=== PATIENT | female | born 1990 | race Caucasian/White ===

== ENCOUNTER 2018-05-31 22:12 | Emergency (ER) | payer OTHER, MEDICAID ==
[2018-05-31 22:47] VITALS: TEMP 98.9
[2018-05-31] MEDS ORDERED: ONDANSETRON 4 MG/2 ML VIAL IVP STA (23:02)
[2018-05-31] MEDS ORDERED: KETOROLAC 30 MG/ML 1 ML VIAL IVP STA (23:02)
[2018-05-31] MEDS ORDERED: MORPHINE SULFATE 2 MG/ML SYRINGE IVP STA (23:02)
[2018-05-31] MEDS ORDERED: SODIUM CHLORIDE 0.9% 1,000 ML IV STA (23:02)
--- NOTE | 2018-05-31 23:22 | ED ---
Abdominal Pain HPI - General Chief Complaint: Abdominal Pain Stated Complaint: Abd pain Time Seen by Provider: 05/31/18 22:54 Source: patient Mode of arrival: ambulatory Limitations: no limitations - History of Present Illness Initial Comments: 27-year-old female patient presents emergency department today for evaluation of right leg pain that radiates into the right side of her abdomen. Patient states that the pain is sharp and cramp-like. Patient states that this started a couple of hours ago but has gotten worse. Patient denies any change to the pain with movement or deep breathing. Patient states that she did have a similar but less severe episode of pain last week that resolved on its own. Patient denies any hematuria, dysuria, urinary frequency, urinary urgency. Denies any abnormal vaginal bleeding or discharge. Denies any chance of . States that the pain has made her nauseated but she has not vomited. Denies any constipation or diarrhea. Has not had any fever or chills. No previous surgeries to her abdomen. Patient denies any recent rash, shortness breath, chest pain, diarrhea, constipation, numbness, tingling, dizziness, weakness, headache, visual changes, or any other complaints. - Related Data Home Medications Medication Instructions Recorded Confirmed Losartan/Hydrochlorothiazide 1 each PO DAILY 05/31/18 06/01/18 [Losartan-Hctz 100-25 mg Tab] Previous Rx's Medication Instructions Recorded Hydrocodone/Acetaminophen [[place] 1 tab PO Q6HR PRN #12 tab 06/01/18 5-325] Ibuprofen [Motrin] 600 mg PO Q8HR PRN #30 tab 06/01/18 Ondansetron [Zofran ODT] 4 mg PO Q8HR PRN #10 tab 06/01/18 Tamsulosin HCl [Flomax] 0.4 mg PO DAILY #7 cap 06/01/18 Allergies Allergy/AdvReac Type Severity Reaction Status Date / Time No Known Allergies Allergy Verified 05/31/18 22:47 Review of Systems ROS Statement: Those systems with pertinent positive or pertinent negative responses have been documented in the HPI. ROS Other: All systems not noted in ROS Statement are negative. Past Medical History Past Medical History: Hypertension Additional Past Medical History / Comment(s): PCOS History of Any Multi-Drug Resistant Organisms: None Reported Past Surgical History: No Surgical Hx Reported Past Psychological History: No Psychological Hx Reported Smoking Status: Never smoker Past Alcohol Use History: Rare Past Drug Use History: None Reported General Exam Limitations: no limitations General appearance: alert, in no apparent distress, other (This is a well- developed, well-nourished adult female patient in no acute distress. Vital signs upon presentation are temperature 98.9F, pulse 111, respirations 18, blood pressure 131/83, pulse ox 99% on room air.) Eye exam: Present: normal appearance, PERRL, EOMI. Absent: scleral icterus, conjunctival injection, periorbital swelling ENT exam: Present: normal exam, normal oropharynx, mucous membranes moist Respiratory exam: Present: normal lung sounds bilaterally. Absent: respiratory distress, wheezes, rales, rhonchi, stridor Cardiovascular Exam: Present: regular rate, normal rhythm, normal heart sounds. Absent: systolic murmur, diastolic murmur, rubs, gallop, clicks GI/Abdominal exam: Present: soft, tenderness (Mild right upper quadrant abdominal tenderness), normal bowel sounds. Absent: distended, guarding, rebound, rigid Back exam: Present: normal inspection, CVA tenderness (R). Absent: CVA tenderness (L) Neurological exam: Present: alert, oriented X3, CN II-XII intact Psychiatric exam: Present: normal affect, normal mood Skin exam: Present: warm, dry, intact, normal color. Absent: rash Course Vital Signs 05/31/18 22:44 Temperature 98.9 F Pulse Rate 111 H Respiratory 18 Rate Blood Pressure 131/83 Medical Decision Making - Medical Decision Making 27-year-old female patient was permit today for evaluation of right flank pain that radiated into her right mid abdomen. Physical examination did reveal some mild right flank tenderness. Labs reviewed and showed attained to rule out kidney stone and did show a 4 mm obstructing stone at the right UPJ. Patient did have some mild right-sided hydronephrosis. Patient was given Flomax here in the department. Upon reevaluation her pain is improved. We will discharge home with pain management, Flomax, and urology follow-up. Return parameters were discussed in detail. Patient verbalizes understanding and agrees with this plan. - Lab Data Result diagrams: 06/01/18 00:15 06/01/18 00:15 Lab Results 06/01/18 06/01/18 06/01/18 Range/Units 00:15 00:15 00:15 WBC 10.6 (3.8-10.6) k/uL RBC 5.07 (3.80-5.40) m/uL Hgb 13.2 (11.4-16.0) gm/dL Hct 39.6 (34.0-46.0) % MCV 78.0 L (80.0-100.0) fL MCH 26.0 (25.0-35.0) pg MCHC 33.4 (31.0-37.0) g/dL RDW 13.4 (11.5-15.5) % Plt Count 410 (150-450) k/uL Neutrophils % 65 % Lymphocytes % 27 % Monocytes % 3 % Eosinophils % 2 % Basophils % 1 % Neutrophils # 6.9 (1.3-7.7) k/uL Lymphocytes # 2.9 (1.0-4.8) k/uL Monocytes # 0.3 (0-1.0) k/uL Eosinophils # 0.3 (0-0.7) k/uL Basophils # 0.1 (0-0.2) k/uL Sodium 140 (137-145) mmol/L Potassium 4.7 (3.5-5.1) mmol/L Chloride 104 (98-107) mmol/L Carbon Dioxide 26 (22-30) mmol/L Anion Gap 10 mmol/L BUN 15 (7-17) mg/dL Creatinine 0.70 (0.52-1.04) mg/dL Est GFR (CKD-EPI)AfAm >90 (>60 ml/min/1.73 sqM) Est GFR (CKD-EPI)NonAf >90 (>60 ml/min/1.73 sqM) Glucose 105 H (74-99) mg/dL Calcium 9.5 (8.4-10.2) mg/dL Total Bilirubin 0.7 (0.2-1.3) mg/dL AST 50 H (14-36) U/L ALT 62 H (9-52) U/L Alkaline Phosphatase 92 (38-126) U/L Total Protein 8.2 (6.3-8.2) g/dL Albumin 4.6 (3.5-5.0) g/dL Amylase 50 (30-110) U/L Lipase 24 (23-300) U/L Urine Color Urine Appearance (Clear) Urine pH (5.0-8.0) Ur Specific [place] (1.001-1.035) Urine Protein (Negative) Urine Glucose (UA) (Negative) Urine Ketones (Negative) Urine Blood (Negative) Urine Nitrite (Negative) Urine Bilirubin (Negative) Urine Urobilinogen (<2.0) mg/dL Ur Leukocyte Esterase (Negative) Urine RBC (0-5) /hpf Urine WBC (0-5) /hpf Ur Squamous Epith Cells (0-4) /hpf Urine Mucus (None) /hpf Urine HCG, Qual Not Detected (Not Detectd) 06/01/18 Range/Units 00:15 WBC (3.8-10.6) k/uL RBC (3.80-5.40) m/uL Hgb (11.4-16.0) gm/dL Hct (34.0-46.0) % MCV (80.0-100.0) fL MCH (25.0-35.0) pg MCHC (31.0-37.0) g/dL RDW (11.5-15.5) % Plt Count (150-450) k/uL Neutrophils % % Lymphocytes % % Monocytes % % Eosinophils % % Basophils % % Neutrophils # (1.3-7.7) k/uL Lymphocytes # (1.0-4.8) k/uL Monocytes # (0-1.0) k/uL Eosinophils # (0-0.7) k/uL Basophils # (0-0.2) k/uL Sodium (137-145) mmol/L Potassium (3.5-5.1) mmol/L Chloride (98-107) mmol/L Carbon Dioxide (22-30) mmol/L Anion Gap mmol/L BUN (7-17) mg/dL Creatinine (0.52-1.04) mg/dL Est GFR (CKD-EPI)AfAm (>60 ml/min/1.73 sqM) Est GFR (CKD-EPI)NonAf (>60 ml/min/1.73 sqM) Glucose (74-99) mg/dL Calcium (8.4-10.2) mg/dL Total Bilirubin (0.2-1.3) mg/dL AST (14-36) U/L ALT (9-52) U/L Alkaline Phosphatase (38-126) U/L Total Protein (6.3-8.2) g/dL Albumin (3.5-5.0) g/dL Amylase (30-110) U/L Lipase (23-300) U/L Urine Color Yellow Urine Appearance Clear (Clear) Urine pH 6.0 (5.0-8.0) Ur Specific [place] 1.012 (1.001-1.035) Urine Protein Trace H (Negative) Urine Glucose (UA) Negative (Negative) Urine Ketones Negative (Negative) Urine Blood Large H (Negative) Urine Nitrite Negative (Negative) Urine Bilirubin Negative (Negative) Urine Urobilinogen <2.0 (<2.0) mg/dL Ur Leukocyte Esterase Negative (Negative) Urine RBC 10 H (0-5) /hpf Urine WBC 3 (0-5) /hpf Ur Squamous Epith Cells 4 (0-4) /hpf Urine Mucus Rare H (None) /hpf Urine HCG, Qual (Not Detectd) - Radiology Data Radiology results: report reviewed, image reviewed CT abdomen and pelvis without contrast was obtained. Report was reviewed in its entirety. Impression by Dr. Oakes shows multiple small bilateral renal calculi. Obstructing calculus at the right ureteropelvic junction. Disposition Clinical Impression: Kidney stone on right side Disposition: HOME SELF-CARE Condition: Good Instructions: Kidney Stones (ED), How to Strain Your Urine (ED) Additional Instructions: Increase fluids. Take medications as directed. Follow-up with urologist for further evaluation. Return here immediately for any new, worsening, or concerning symptoms. Prescriptions: Hydrocodone/Acetaminophen [[place] 5-325] 1 tab PO Q6HR PRN #12 tab PRN Reason: Pain Ibuprofen [Motrin] 600 mg PO Q8HR PRN #30 tab PRN Reason: Pain Ondansetron [Zofran ODT] 4 mg PO Q8HR PRN #10 tab PRN Reason: Nausea Tamsulosin HCl [Flomax] 0.4 mg PO DAILY #7 cap Is patient prescribed a controlled substance at d/c from ED?: No Referrals: Hubert Gan MD [Primary Care Provider] - 1-2 days Jadiel Garcia MD [STAFF PHYSICIAN] - 1-2 days Time of Disposition: 03:15
[2018-06-01 00:27] LABS: Basophils # (A) 0.1 k/uL (0-0.2); Basophils % (A) 1 %; Eosinophils # (A) 0.3 k/uL (0-0.7); Eosinophils % (A) 2 %; HCT 39.6 % (34.0-46.0); HGB 13.2 gm/dL (11.4-16.0); Lymphocytes # (A) 2.9 k/uL (1.0-4.8); Lymphocytes % (A) 27 %; MCHC 33.4 g/dL (31.0-37.0); Mean Platelet Volume 6.7; Monocytes # (A) 0.3 k/uL (0-1.0); Monocytes % (A) 3 %; Neutrophils # (A) 6.9 k/uL (1.3-7.7); Neutrophils % (A) 65 %; Platelet Count 410 k/uL (150-450); RBC 5.07 m/uL (3.80-5.40); RDW 13.4 % (11.5-15.5); WBC 10.6 k/uL (3.8-10.6)
[2018-06-01 00:29] LABS: Appearance,Urine Clear (Clear); Bilirubin,Urine Negative (Negative); Blood,Urine Large (Negative); Color,Urine Yellow; Glucose,Urine (UA) Negative (Negative); Ketones,Urine Negative (Negative); Leukocyte Esterase,Urine Negative (Negative); Mucus,Urine Rare /hpf; Nitrite,Urine Negative (Negative); Protein,Urine Trace (Negative); RBC,Urine 10 /hpf (0-5); Specific Gravity,Urine 1.012 (1.001-1.035); Squamous Epithelial Cell,Urine 4 /hpf (0-4); Urobilinogen,Urine <2.0 mg/dL (<2.0); WBC,Urine 3 /hpf (0-5)
[2018-06-01 00:38] LABS: Amylase 50 U/L (30-110); Anion Gap 10 mmol/L; Calcium 9.5 mg/dL (8.4-10.2); Carbon Dioxide 26 mmol/L (22-30); Chloride 104 mmol/L (98-107); Glucose 105 mg/dL (74-99); Lipase 24 U/L (23-300); Sodium 140 mmol/L (137-145); Total Bilirubin 0.7 mg/dL (0.2-1.3)
[2018-06-01 00:41] LABS: Albumin 4.6 g/dL (3.5-5.0); Blood Urea Nitrogen 15 mg/dL (7-17); Potassium 4.7 mmol/L (3.5-5.1); Total Protein 8.2 g/dL (6.3-8.2)
[2018-06-01 00:42] LABS: ALT 62 U/L (9-52); AST 50 U/L (14-36); Alkaline Phosphatase 92 U/L (38-126)
--- NOTE | 2018-06-01 03:12 | CT ---
EXAMINATION TYPE: CT abdomen pelvis wo con DATE OF EXAM: 06/01/2018 COMPARISON: None HISTORY: Right Flank Pain CT DLP: 1629.30 mGycm Automated exposure control for dose reduction was used. TECHNIQUE: Helical acquisition of images was performed from the lung bases through the pelvis. FINDINGS: Multiple axial sections are obtained from the diaphragm to the floor the pelvis with no contrast. Lung bases are clear. There is no pleural effusion. Heart size is normal. Liver spleen pancreas gallbladder appear normal. Bile ducts are not dilated. There is no adrenal mass . Kidneys show normal size and contour. There is mild right-sided hydronephrosis. There is a 4 mm eren culus at the right ureteropelvic junction. There is small right renal calculi in the lower pole left kidney. There is 1 mm calculus lateral right kidney. Ureters are not dilated. There is no ascites. Appendix appears normal. There is no intestinal wall th ickening. There are no dilated loops. Bladder distends smoothly. There is no ascites. There is no alexy e air. The bony structures appear intact. Uterus is anteverted. IMPRESSION: MULTIPLE SMALL BILATERAL RENAL CALCULI. OBSTRUCTING CALCULUS AT THE RIGHT URETEROPELVIC JUNCTION.
[2018-06-01] MEDS ORDERED: ONDANSETRON 4 MG ODT STARTER PACK 2 TAB BTL PO STA (03:14)
[2018-06-01] MEDS ORDERED: ACET/COD 300 MG/30 MG STARTER PACK 6 TAB BTL PO STA (03:14)
[2018-06-01] MEDS ORDERED: TAMSULOSIN 0.4 MG CAP.ER.24H PO STA (03:14)
[2018-06-01 03:40] VITALS: BP 167/95; PULSE 94; RESP 16
== END 2018-06-01 03:41 | disposition home or self-care (01) ==
LOC: EC 22:12
DX: N13.2 Hydronephrosis with renal and ureteral calculous obstruction (principal); I10 Essential (primary) hypertension; Z79.899 Other long term (current) drug therapy
CPT/HCPCS: 99284; 96374; 96375 ×2; 96361; 36415; 80053; 82150; 83690; 85025; 81001; 81025; 74176; J2405; J1885; J2270; S0119

== ENCOUNTER → 2018-12-24 | Outpatient (CLI) | payer MEDICAID ==
--- NOTE | 2018-12-24 16:35 | US ---
EXAMINATION TYPE: US pelvic complete DATE OF EXAM: 12/24/2018 COMPARISON: NONE CLINICAL HISTORY: R10.2 pelvic pain, hx of PCOS TECHNIQUE: Transabdominal (TA). Date of LMP: Unknown EXAM MEASUREMENTS: Uterus: 7.7 x 3.4 x 5.2 cm Endometrial Stripe: 0.9 cm Right Ovary: 2.3 x 1.5 x 2.5 cm Left Ovary: 2.8 x 1.5 x 1.5 cm 1. Uterus: Anteverted wnl 2. Endometrium: wnl 3. Right Ovary: wnl 4. Left Ovary: wnl 5. Bilateral Adnexa: wnl 6. Posterior cul-de-sac: wnl Urinary bladder is sonolucent. IMPRESSION: 1. Normal pelvic ultrasound
== END | disposition home or self-care (01) ==
LOC: RADUSWWP 07:20
PROVIDERS: ATTEND Obstetrics & Gynecology
DX: R10.2 Pelvic and perineal pain (principal)
CPT/HCPCS: 76856

== ENCOUNTER 2019-01-18 08:23 | Emergency (ER) | payer MEDICAID, OTHER ==
[2019-01-18] MEDS ORDERED: SODIUM CHLORIDE 0.9% 1,000 ML IV STA (08:52)
[2019-01-18] MEDS ORDERED: ONDANSETRON 4 MG/2 ML VIAL IVP STA (08:57)
[2019-01-18] MEDS ORDERED: KETOROLAC 30 MG/ML 1 ML VIAL IVP STA (08:57)
[2019-01-18 09:11] LABS: Basophils # (A) 0.1 k/uL (0-0.2); Basophils % (A) 1 %; Eosinophils # (A) 0.4 k/uL (0-0.7); Eosinophils % (A) 3 %; HCT 35.7 % (34.0-46.0); HGB 11.7 gm/dL (11.4-16.0); Lymphocytes # (A) 3.5 k/uL (1.0-4.8); Lymphocytes % (A) 31 %; MCH 26.3 pg (25.0-35.0); MCHC 32.7 g/dL (31.0-37.0); MCV 80.3 fL (80.0-100.0); Mean Platelet Volume 6.3; Monocytes # (A) 0.4 k/uL (0-1.0); Monocytes % (A) 4 %; Neutrophils # (A) 6.6 k/uL (1.3-7.7); Neutrophils % (A) 59 %; Platelet Count 390 k/uL (150-450); RBC 4.45 m/uL (3.80-5.40); RDW 14.3 % (11.5-15.5); WBC 11.1 k/uL (3.8-10.6)
[2019-01-18 09:15] LABS: Appearance,Urine Clear (Clear); Bilirubin,Urine Negative (Negative); Blood,Urine Small (Negative); Color,Urine Yellow; Glucose,Urine (UA) Negative (Negative); Ketones,Urine Negative (Negative); Leukocyte Esterase,Urine Negative (Negative); Mucus,Urine Occasional /hpf; Nitrite,Urine Negative (Negative); PH, Urine 6.5 (5.0-8.0); Protein,Urine Negative (Negative); RBC,Urine 8 /hpf (0-5); Specific Gravity,Urine 1.012 (1.001-1.035); Squamous Epithelial Cell,Urine <1 /hpf (0-4); Urobilinogen,Urine <2.0 mg/dL (<2.0); WBC,Urine 1 /hpf (0-5)
--- NOTE | 2019-01-18 09:22 | ED ---
General Adult HPI - General Chief complaint: Abdominal Pain Stated complaint: abdominal pain Time Seen by Provider: 01/18/19 08:38 Source: patient, RN notes reviewed Mode of arrival: ambulatory Limitations: no limitations - History of Present Illness Initial comments: 28-year-old female with a past medical history of hypertension, PCOS presents to the emergency department for a chief complaint of right flank pain. Patient states this has been ongoing for about 7 hours. Patient states that at about the same time she developed urinary urgency and frequency. Patient states that couple weeks ago she thought she had a urinary tract infection but she did not. She states she stopped amoxicillin about one week ago for an ear infection. Patient denies fevers or chills. She denies any abdominal pain. Patient does admit to a history of kidney stones. She does admit to nausea throughout the morning but denies any vomiting. Patient has no other complaints at this time including shortness of breath, chest pain, vomiting, headache, or visual khadijah nges. - Related Data Home Medications Medication Instructions Recorded Confirmed Losartan/Hydrochlorothiazide 1 tab PO HS 05/31/18 01/18/19 [Losartan-Hctz 100-25 mg Tab] Control (Unknown) 1 tab PO HS 01/18/19 01/18/19 Cholecalciferol (Vitamin D3) 2,000 unit PO HS 01/18/19 01/18/19 [Vitamin D3] Allergies Allergy/AdvReac Type Severity Reaction Status Date / Time No Known Allergies Allergy Verified 01/18/19 08:46 Review of Systems ROS Statement: Those systems with pertinent positive or pertinent negative responses have been documented in the HPI. ROS Other: All systems not noted in ROS Statement are negative. Past Medical History Past Medical History: Hypertension Additional Past Medical History / Comment(s): PCOS History of Any Multi-Drug Resistant Organisms: None Reported Past Surgical History: No Surgical Hx Reported Past Psychological History: No Psychological Hx Reported Smoking Status: Never smoker Past Alcohol Use History: Rare Past Drug Use History: None Reported General Exam Limitations: no limitations General appearance: alert, in no apparent distress Head exam: Present: atraumatic, normocephalic, normal inspection Eye exam: Present: normal appearance, PERRL, EOMI. Absent: scleral icterus, conjunctival injection, periorbital swelling ENT exam: Present: normal exam, mucous membranes moist Neck exam: Present: normal inspection, full ROM. Absent: tenderness, meningismus, lymphadenopathy Respiratory exam: Present: normal lung sounds bilaterally. Absent: respiratory distress, wheezes, rales, rhonchi, stridor Cardiovascular Exam: Present: regular rate, normal rhythm, normal heart sounds. Absent: systolic murmur, diastolic murmur, rubs, gallop, clicks GI/Abdominal exam: Present: soft, normal bowel sounds. Absent: distended, tenderness (No tenderness noted in the abdomen. There is some pressure when palpating the suprapubic area), guarding, rebound, rigid Back exam: Absent: CVA tenderness (R), CVA tenderness (L) Neurological exam: Present: alert, oriented X3, CN II-XII intact Psychiatric exam: Present: normal affect, normal mood Course Vital Signs 01/18/19 08:29 Temperature 98.4 F Pulse Rate 110 H Respiratory 16 Rate Blood Pressure 177/92 O2 Sat by Pulse 100 Oximetry Medical Decision Making - Medical Decision Making 28-year-old female presents for right flank pain with urinary urgency and frequency 5 hours. No abdominal tenderness whatsoever on exam. Negative Voss sign. Patient did have some mild pressure when palpating the suprapubic area. CBC and CMP are unremarkable. Ultrasound of the kidneys and bladder showed no evidence of hydronephrosis, nephrolithiasis or masses. Patient was given pain medicine and is feeling much better at this time. She is having significantly improved. At this time it is felt the patient can follow up outpatient. However I did discuss returning if she has worsening symptoms which she does agree with. - Lab Data Result diagrams: 01/18/19 08:54 01/18/19 08:54 Lab Results 01/18/19 01/18/19 01/18/19 Range/Units 08:54 08:54 08:54 WBC (3.8-10.6) k/uL RBC (3.80-5.40) m/uL Hgb (11.4-16.0) gm/dL Hct (34.0-46.0) % MCV (80.0-100.0) fL MCH (25.0-35.0) pg MCHC (31.0-37.0) g/dL RDW (11.5-15.5) % Plt Count (150-450) k/uL Neutrophils % % Lymphocytes % % Monocytes % % Eosinophils % % Basophils % % Neutrophils # (1.3-7.7) k/uL Lymphocytes # (1.0-4.8) k/uL Monocytes # (0-1.0) k/uL Eosinophils # (0-0.7) k/uL Basophils # (0-0.2) k/uL Sodium 137 (137-145) mmol/L Potassium 3.7 (3.5-5.1) mmol/L Chloride 103 (98-107) mmol/L Carbon Dioxide 23 (22-30) mmol/L Anion Gap 11 mmol/L BUN 15 (7-17) mg/dL Creatinine 0.69 (0.52-1.04) mg/dL Est GFR (CKD-EPI)AfAm >90 (>60 ml/min/1.73 sqM) Est GFR (CKD-EPI)NonAf >90 (>60 ml/min/1.73 sqM) Glucose 110 H (74-99) mg/dL Calcium 9.2 (8.4-10.2) mg/dL Total Bilirubin 0.9 (0.2-1.3) mg/dL AST 39 H (14-36) U/L ALT 43 (9-52) U/L Alkaline Phosphatase 82 (38-126) U/L Total Protein 8.2 (6.3-8.2) g/dL Albumin 4.5 (3.5-5.0) g/dL Amylase 83 (30-110) U/L Lipase 45 (23-300) U/L Urine Color Yellow Urine Appearance Clear (Clear) Urine pH 6.5 (5.0-8.0) Ur Specific [place] 1.012 (1.001-1.035) Urine Protein Negative (Negative) Urine Glucose (UA) Negative (Negative) Urine Ketones Negative (Negative) Urine Blood Small H (Negative) Urine Nitrite Negative (Negative) Urine Bilirubin Negative (Negative) Urine Urobilinogen <2.0 (<2.0) mg/dL Ur Leukocyte Esterase Negative (Negative) Urine RBC 8 H (0-5) /hpf Urine WBC 1 (0-5) /hpf Ur Squamous Epith Cells <1 (0-4) /hpf Urine Mucus Occasional H (None) /hpf Urine HCG, Qual Not Detected (Not Detectd) 01/18/19 Range/Units 08:54 WBC 11.1 H (3.8-10.6) k/uL RBC 4.45 (3.80-5.40) m/uL Hgb 11.7 (11.4-16.0) gm/dL Hct 35.7 (34.0-46.0) % MCV 80.3 (80.0-100.0) fL MCH 26.3 (25.0-35.0) pg MCHC 32.7 (31.0-37.0) g/dL RDW 14.3 (11.5-15.5) % Plt Count 390 (150-450) k/uL Neutrophils % 59 % Lymphocytes % 31 % Monocytes % 4 % Eosinophils % 3 % Basophils % 1 % Neutrophils # 6.6 (1.3-7.7) k/uL Lymphocytes # 3.5 (1.0-4.8) k/uL Monocytes # 0.4 (0-1.0) k/uL Eosinophils # 0.4 (0-0.7) k/uL Basophils # 0.1 (0-0.2) k/uL Sodium (137-145) mmol/L Potassium (3.5-5.1) mmol/L Chloride (98-107) mmol/L Carbon Dioxide (22-30) mmol/L Anion Gap mmol/L BUN (7-17) mg/dL Creatinine (0.52-1.04) mg/dL Est GFR (CKD-EPI)AfAm (>60 ml/min/1.73 sqM) Est GFR (CKD-EPI)NonAf (>60 ml/min/1.73 sqM) Glucose (74-99) mg/dL Calcium (8.4-10.2) mg/dL Total Bilirubin (0.2-1.3) mg/dL AST (14-36) U/L ALT (9-52) U/L Alkaline Phosphatase (38-126) U/L Total Protein (6.3-8.2) g/dL Albumin (3.5-5.0) g/dL Amylase (30-110) U/L Lipase (23-300) U/L Urine Color Urine Appearance (Clear) Urine pH (5.0-8.0) Ur Specific [place] (1.001-1.035) Urine Protein (Negative) Urine Glucose (UA) (Negative) Urine Ketones (Negative) Urine Blood (Negative) Urine Nitrite (Negative) Urine Bilirubin (Negative) Urine Urobilinogen (<2.0) mg/dL Ur Leukocyte Esterase (Negative) Urine RBC (0-5) /hpf Urine WBC (0-5) /hpf Ur Squamous Epith Cells (0-4) /hpf Urine Mucus (None) /hpf Urine HCG, Qual (Not Detectd) Disposition Clinical Impression: Renal colic Disposition: HOME SELF-CARE Condition: Good Instructions (If sedation given, give patient instructions): Renal Colic (ED) Additional Instructions: Please take Motrin and Tylenol for pain. Please follow-up with primary care in 1-2 days. Please return here to the emergency department if you have any worsening symptoms. Is patient prescribed a controlled substance at d/c from ED?: No Referrals: Hubert Gan MD [Primary Care Provider] - 1-2 days Time of Disposition: 10:44
[2019-01-18 09:30] LABS: ALT 43 U/L (9-52); AST 39 U/L (14-36); Albumin 4.5 g/dL (3.5-5.0); Alkaline Phosphatase 82 U/L (38-126); Amylase 83 U/L (30-110); Anion Gap 11 mmol/L; Blood Urea Nitrogen 15 mg/dL (7-17); Calcium 9.2 mg/dL (8.4-10.2); Carbon Dioxide 23 mmol/L (22-30); Chloride 103 mmol/L (98-107); Glucose 110 mg/dL (74-99); Lipase 45 U/L (23-300); Sodium 137 mmol/L (137-145); Total Bilirubin 0.9 mg/dL (0.2-1.3); Total Protein 8.2 g/dL (6.3-8.2)
[2019-01-18 09:34] LABS: Potassium 3.7 mmol/L (3.5-5.1)
--- NOTE | 2019-01-18 10:01 | US ---
EXAMINATION TYPE: US kidneys/renal and bladder DATE OF EXAM: 01/18/2019 COMPARISON: NONE CLINICAL HISTORY: Pain. Right flank pain, history of kidney stones EXAM MEASUREMENTS: Right Kidney: 12.7 x 5.3 x 5.8 cm Left Kidney: 12.0 x 5.9 x 5.1 cm Right Kidney: no evidence of hydronephrosis Left Kidney: no evidence of hydronephrosis Bladder: not fully distended Bilateral Jets seen: no There is no evidence for hydronephrosis at this point in time. No nephrolithiasis is seen. No diogenes s are identified. Cortical medullary differentiation is maintained. IMPRESSION: Renal sizes as described.
[2019-01-18 10:52] VITALS: BP 148/99; PULSE 100; RESP 17; TEMP 97.9
== END 2019-01-18 10:52 | disposition home or self-care (01) ==
LOC: EC 08:23
DX: N23 Unspecified renal colic (principal); I10 Essential (primary) hypertension; Z87.442 Personal history of urinary calculi; Z79.3 Long term (current) use of hormonal contraceptives; Z79.899 Other long term (current) drug therapy
CPT/HCPCS: 99284; 96374; 96375; 96361; 36415; 80053; 82150; 83690; 85025; 81001; 81025; 76770; J2405; J1885

== ENCOUNTER 2019-01-21 06:57 | Emergency (ER) | payer MEDICAID ==
[2019-01-21] MEDS ORDERED: SODIUM CHLORIDE 0.9% 1,000 ML IV STA (07:09)
[2019-01-21 07:20] VITALS: RESP 18; TEMP 98.1
[2019-01-21] MEDS ORDERED: KETOROLAC 30 MG/ML 1 ML VIAL IVP STA (07:29)
[2019-01-21] MEDS ORDERED: ONDANSETRON 4 MG/2 ML VIAL IVP STA ×2 (07:29→09:15)
--- NOTE | 2019-01-21 07:33 | ED ---
Abdominal Pain HPI - General Chief Complaint: Abdominal Pain Stated Complaint: Back/AbdPain Time Seen by Provider: 01/21/19 07:08 Source: patient, RN notes reviewed Mode of arrival: ambulatory Limitations: no limitations - History of Present Illness Initial Comments: This is a 28-year-old female presents emergency Department with chief complaint of lower abdominal pain, flank pain. Patient states that she was seen in emergency department for days ago for similar complaints states his symptoms are worsening. Patient denies any vomiting states that she's had some nausea. Patient noticed urinary urgency frequency with dysuria. Patient had no noted hematuria. She does have a history kidney stone but this feels worse. She also has a history of PE centimeters states is also feels different. Patient had an ultrasound on her last visit with no acute findings. Patient did take Tylenol 2 hours ago with no relief. Patient denies any diarrhea, constipation. Patient offers no other complaints. - Related Data Home Medications Medication Instructions Recorded Confirmed Cholecalciferol (Vitamin D3) 2,000 unit PO HS 01/21/19 01/21/19 [Vitamin D3] Losartan/Hydrochlorothiazide 1 tab PO HS 01/21/19 01/21/19 [Losartan-Hctz 100-25 mg Tab] Norgestimate/Ethinyl Estradiol 1 tab PO HS 01/21/19 01/21/19 Previous Rx's Medication Instructions Recorded Ketorolac [Toradol] 10 mg PO Q8HR #15 tab 01/21/19 Ondansetron Odt [Zofran Odt] 4 mg PO Q8HR PRN #10 tab 01/21/19 Tamsulosin [Flomax] 0.4 mg PO DAILY #7 cap 01/21/19 Allergies Allergy/AdvReac Type Severity Reaction Status Date / Time No Known Allergies Allergy Verified 01/21/19 09:11 Review of Systems ROS Statement: Those systems with pertinent positive or pertinent negative responses have been documented in the HPI. ROS Other: All systems not noted in ROS Statement are negative. Past Medical History Past Medical History: Hypertension Additional Past Medical History / Comment(s): PCOS History of Any Multi-Drug Resistant Organisms: None Reported Past Surgical History: No Surgical Hx Reported Past Psychological History: No Psychological Hx Reported Smoking Status: Never smoker Past Alcohol Use History: Rare Past Drug Use History: None Reported General Exam Limitations: no limitations General appearance: alert, in no apparent distress Head exam: Present: atraumatic, normocephalic, normal inspection Eye exam: Present: normal appearance, PERRL, EOMI. Absent: scleral icterus, conjunctival injection, periorbital swelling Neck exam: Present: normal inspection. Absent: tenderness, meningismus, lymphadenopathy Respiratory exam: Present: normal lung sounds bilaterally. Absent: respiratory distress, wheezes, rales, rhonchi, stridor Cardiovascular Exam: Present: regular rate, normal rhythm, normal heart sounds. Absent: systolic murmur, diastolic murmur, rubs, gallop, clicks GI/Abdominal exam: Present: soft, tenderness (Mild to moderate lower abdominal), normal bowel sounds. Absent: distended, guarding, rebound, rigid Back exam: Absent: CVA tenderness (R), CVA tenderness (L) Skin exam: Present: warm, dry, intact, normal color. Absent: rash Course Vital Signs 01/21/19 01/21/19 07:16 08:24 Temperature 98.1 F Pulse Rate 78 107 H Respiratory 18 18 Rate Blood Pressure 162/112 153/88 O2 Sat by Pulse 100 100 Oximetry Medical Decision Making - Medical Decision Making 28 show female presented for right flank pain, nausea vomiting. Patient has evidence of 3 mm UVJ stone. Patient will be given pain medication, antiemetics go home with. There is no evidence of urinary tract infection. Patient follow- up with urology if no improvement. - Lab Data Result diagrams: 01/21/19 07:30 01/21/19 07:30 Lab Results 01/21/19 01/21/19 01/21/19 Range/Units 07:30 07:30 07:30 WBC 11.2 H (3.8-10.6) k/uL RBC 4.29 (3.80-5.40) m/uL Hgb 11.0 L (11.4-16.0) gm/dL Hct 34.8 (34.0-46.0) % MCV 81.1 (80.0-100.0) fL MCH 25.7 (25.0-35.0) pg MCHC 31.7 (31.0-37.0) g/dL RDW 14.6 (11.5-15.5) % Plt Count 384 (150-450) k/uL Neutrophils % 61 % Lymphocytes % 29 % Monocytes % 5 % Eosinophils % 2 % Basophils % 1 % Neutrophils # 6.9 (1.3-7.7) k/uL Lymphocytes # 3.3 (1.0-4.8) k/uL Monocytes # 0.6 (0-1.0) k/uL Eosinophils # 0.2 (0-0.7) k/uL Basophils # 0.1 (0-0.2) k/uL Sodium 139 (137-145) mmol/L Potassium 4.2 (3.5-5.1) mmol/L Chloride 104 (98-107) mmol/L Carbon Dioxide 21 L (22-30) mmol/L Anion Gap 14 mmol/L BUN 18 H (7-17) mg/dL Creatinine 0.76 (0.52-1.04) mg/dL Est GFR (CKD-EPI)AfAm >90 (>60 ml/min/1.73 sqM) Est GFR (CKD-EPI)NonAf >90 (>60 ml/min/1.73 sqM) Glucose 109 H (74-99) mg/dL Calcium 9.6 (8.4-10.2) mg/dL Total Bilirubin 0.7 (0.2-1.3) mg/dL AST 22 (14-36) U/L ALT 36 (9-52) U/L Alkaline Phosphatase 87 (38-126) U/L Total Protein 7.7 (6.3-8.2) g/dL Albumin 4.4 (3.5-5.0) g/dL Lipase 45 (23-300) U/L Urine Color Urine Appearance (Clear) Urine pH (5.0-8.0) Ur Specific [place] (1.001-1.035) Urine Protein (Negative) Urine Glucose (UA) (Negative) Urine Ketones (Negative) Urine Blood (Negative) Urine Nitrite (Negative) Urine Bilirubin (Negative) Urine Urobilinogen (<2.0) mg/dL Ur Leukocyte Esterase (Negative) Urine HCG, Qual Not Detected (Not Detectd) 01/21/19 Range/Units 07:30 WBC (3.8-10.6) k/uL RBC (3.80-5.40) m/uL Hgb (11.4-16.0) gm/dL Hct (34.0-46.0) % MCV (80.0-100.0) fL MCH (25.0-35.0) pg MCHC (31.0-37.0) g/dL RDW (11.5-15.5) % Plt Count (150-450) k/uL Neutrophils % % Lymphocytes % % Monocytes % % Eosinophils % % Basophils % % Neutrophils # (1.3-7.7) k/uL Lymphocytes # (1.0-4.8) k/uL Monocytes # (0-1.0) k/uL Eosinophils # (0-0.7) k/uL Basophils # (0-0.2) k/uL Sodium (137-145) mmol/L Potassium (3.5-5.1) mmol/L Chloride (98-107) mmol/L Carbon Dioxide (22-30) mmol/L Anion Gap mmol/L BUN (7-17) mg/dL Creatinine (0.52-1.04) mg/dL Est GFR (CKD-EPI)AfAm (>60 ml/min/1.73 sqM) Est GFR (CKD-EPI)NonAf (>60 ml/min/1.73 sqM) Glucose (74-99) mg/dL Calcium (8.4-10.2) mg/dL Total Bilirubin (0.2-1.3) mg/dL AST (14-36) U/L ALT (9-52) U/L Alkaline Phosphatase (38-126) U/L Total Protein (6.3-8.2) g/dL Albumin (3.5-5.0) g/dL Lipase (23-300) U/L Urine Color Yellow Urine Appearance Clear (Clear) Urine pH 6.0 (5.0-8.0) Ur Specific [place] 1.025 (1.001-1.035) Urine Protein Trace H (Negative) Urine Glucose (UA) Negative (Negative) Urine Ketones Negative (Negative) Urine Blood Negative (Negative) Urine Nitrite Negative (Negative) Urine Bilirubin Negative (Negative) Urine Urobilinogen <2.0 (<2.0) mg/dL Ur Leukocyte Esterase Negative (Negative) Urine HCG, Qual (Not Detectd) Disposition Clinical Impression: Ureteral calculi Disposition: HOME SELF-CARE Condition: Stable Instructions (If sedation given, give patient instructions): Kidney Stones (ED) Additional Instructions: Please return to the Emergency Department if symptoms worsen or any other concerns. Prescriptions: Tamsulosin [Flomax] 0.4 mg PO DAILY #7 cap Ketorolac [Toradol] 10 mg PO Q8HR #15 tab Ondansetron Odt [Zofran Odt] 4 mg PO Q8HR PRN #10 tab PRN Reason: Nausea Is patient prescribed a controlled substance at d/c from ED?: No Referrals: Hubert Gan MD [Primary Care Provider] - 1-2 days Héctor Randolph MD [STAFF PHYSICIAN] - 1-2 days Time of Disposition: 09:28
[2019-01-21 07:57] LABS: Albumin 4.4 g/dL (3.5-5.0); Anion Gap 14 mmol/L; Blood Urea Nitrogen 18 mg/dL (7-17); Calcium 9.6 mg/dL (8.4-10.2); Carbon Dioxide 21 mmol/L (22-30); Chloride 104 mmol/L (98-107); Glucose 109 mg/dL (74-99); Lipase 45 U/L (23-300); Sodium 139 mmol/L (137-145); Total Bilirubin 0.7 mg/dL (0.2-1.3); Total Protein 7.7 g/dL (6.3-8.2)
[2019-01-21 08:04] LABS: ALT 36 U/L (9-52); AST 22 U/L (14-36); Potassium 4.2 mmol/L (3.5-5.1)
[2019-01-21 08:05] LABS: Alkaline Phosphatase 87 U/L (38-126)
[2019-01-21 08:19] LABS: Basophils # (A) 0.1 k/uL (0-0.2); Basophils % (A) 1 %; Eosinophils # (A) 0.2 k/uL (0-0.7); Eosinophils % (A) 2 %; HCT 34.8 % (34.0-46.0); Lymphocytes # (A) 3.3 k/uL (1.0-4.8); Lymphocytes % (A) 29 %; MCH 25.7 pg (25.0-35.0); MCHC 31.7 g/dL (31.0-37.0); MCV 81.1 fL (80.0-100.0); Monocytes # (A) 0.6 k/uL (0-1.0); Monocytes % (A) 5 %; Neutrophils # (A) 6.9 k/uL (1.3-7.7); Neutrophils % (A) 61 %; Platelet Count 384 k/uL (150-450); RBC 4.29 m/uL (3.80-5.40); RDW 14.6 % (11.5-15.5); WBC 11.2 k/uL (3.8-10.6)
[2019-01-21 08:26] VITALS: BP 153/88; PULSE 107
--- NOTE | 2019-01-21 08:46 | CT ---
EXAMINATION TYPE: CT abdomen pelvis w con DATE OF EXAM: 01/21/2019 COMPARISON: 06/01/2018 INDICATION: Rt flank pain, urinary frequency DLP: 1611.8 mGycm, Automated exposure control for dose reduction was used. CONTRAST: 100 mL of Isovue 300. Study performed without Oral Contrast TECHNIQUE: Axial images were obtained from above the diaphragm to the pubic rami in the axial plane a t 5 mm thick sections. Reconstructed images are reviewed on the computer in the coronal plane. FINDINGS: Limited CT sections are obtained the lung bases. The lung bases are clear. CT ABDOMEN: Liver: There is mild to moderate fatty infiltration to the liver. No discrete masses or cysts are charlee dent. Spleen: Normal Pancreas: Normal Adrenal glands: The adrenal glands are normal. Gallbladder: Normal Kidneys: No masses are evident. There is moderate right hydronephrosis. Hydroureter extends to the ri ght ureterovesical junction. There is a 0.3 cm calcification at the right ureteral vesicle junction. No cysts are present. There is a 0.3 cm inferior pole left renal stone which is nonobstructing. Aorta: Normal Inferior vena cava: Normal. CT PELVIS: Loops of bowel within the abdomen and pelvis are normal. Studies performed without oral contrast limiting bowel evaluation. Appendix: Not well visualized. What may be the appendix posterior to the cecum does not have inflamma tory changes adjacent. No dilated tubular structures are evident. Urinary bladder: Normal. Genitourinary structures: Uterus is unremarkable. Adnexal regions are clear. No free fluid is within the pelvis. Osseous structures: Unremarkable. IMPRESSIONS: 1. 0.3 cm obstructing right ureteral vesicle junction stone. There is moderate right hydronephrosis and hydroureter. 2. Nonobstructing inferior pole left renal stone.
[2019-01-21] MEDS ORDERED: TAMSULOSIN 0.4 MG CAP.ER.24H PO STA (08:48)
[2019-01-21 08:53] LABS: Appearance,Urine Clear (Clear); Bilirubin,Urine Negative (Negative); Blood,Urine Negative (Negative); Color,Urine Yellow; Glucose,Urine (UA) Negative (Negative); Ketones,Urine Negative (Negative); Leukocyte Esterase,Urine Negative (Negative); Nitrite,Urine Negative (Negative); Protein,Urine Trace (Negative); Urobilinogen,Urine <2.0 mg/dL (<2.0)
[2019-01-21 09:14] LABS: Specific Gravity,Urine 1.025 (1.001-1.035)
[2019-01-21] MEDS ORDERED: ACET/COD 300 MG/30 MG STARTER PACK 6 TAB BTL PO STA (09:26)
== END 2019-01-21 10:23 | disposition home or self-care (01) ==
LOC: EC 06:57
DX: N13.2 Hydronephrosis with renal and ureteral calculous obstruction (principal); I10 Essential (primary) hypertension; Z79.899 Other long term (current) drug therapy; Z79.890 Hormone replacement therapy; Z86.711 Personal history of pulmonary embolism
CPT/HCPCS: 36415; 80053; 83690; 85025; 81003; 81025; 74177; 99284; 96374; 96375; 96376; 96361 ×3; J2405; J1885; Q9967

== ENCOUNTER → 2019-12-06 | Outpatient (CLI) | payer MEDICAID ==
--- NOTE | 2019-12-06 11:19 | ECHOS ---
STRESS ECHOCARDIOGRAM DATE OF SERVICE: 12/06/2019 INDICATIONS: Chest pain. MEDICATIONS: BASELINE HEART RATE: 110 BASELINE BLOOD PRESSURE: 126/72 MAXIMUM HEART RATE: 180 MAXIMUM BLOOD PRESSURE: 191/55 85% MPHR: 164 100% MPHR: 193 METS: 5.4 MAXIMUM STAGE REACHED: II TOTAL EXERCISE TIME: 4 minutes CLINICAL INFORMATION: Baseline EKG revealed a normal sinus rhythm with sinus tachycardia. Resting heart rate of 110 beats per minute. Patient walked for 4 minutes on a standard Jorge protocol. Maximal heart rate was 180 beats per minute. She did not have any angina. She developed shortness of breath and fatigue. EKG did not reveal any ST-segment changes to indicate ischemia. She had a limited exercise capacity with the resting sinus tachycardia and no evidence of any ST-segment changes to indicate ischemia. Limited exercise capacity. Negative stress test by EKG criteria. Baseline echo images revealed normal wall motion and wall thickening of all segments. The patient was given echo contrast to improve the quality of images. At peak exercise there was good augmentation of wall motion and wall thickening of all segments suggesting that there is no evidence of any stress-induced ischemia on this study. IMPRESSION: 1. Limited exercise capacity with resting sinus tachycardia. No evidence of ischemia by EKG criteria. 2. Normal stress echocardiogram. MMODL / IJN: [id number] /
== END | disposition home or self-care (01) ==
LOC: RADNMMAIN 09:59
PROVIDERS: ATTEND Nurse Practitioner Family
DX: Z09 Encounter for follow-up examination after completed treatment for conditions other than malignant neoplasm (principal); R00.0 Tachycardia, unspecified; Z86.79 Personal history of other diseases of the circulatory system
CPT/HCPCS: 93351; Q9950

== ENCOUNTER → 2020-11-03 | Outpatient (CLI) | payer MEDICAID ==
--- NOTE | 2020-11-03 12:27 | US ---
EXAMINATION TYPE: US abdomen complete DATE OF EXAM: 11/03/2020 COMPARISON: CLINICAL HISTORY: R74.8 abnormal enzyme levels. Abnormal labs. Hx of renal stones. EXAM MEASUREMENTS: Liver Length: 18.1 cm Gallbladder Wall: 0.2 cm CBD: 0.3 cm Spleen: 12.4 cm Right Kidney: 11.2 x 5.0 x 6.0 cm Left Kidney: 11.4 x 5.0 x 6.2 cm Pancreas: wnl Liver: Increased attenuation, decreased visualization of vessels suggestive of fatty infiltrate. He terogenous. Upper limits of normal. Gallbladder: wnl Evidence for sonographic Voss's sign: neg CBD: wnl Spleen: wnl Right Kidney: No hydronephrosis or masses seen Left Kidney: No hydronephrosis or masses seen Upper IVC: Not well visualized Abd Aorta: Limited visualization, distal portion not seen due to overlying bowel gas IMPRESSION: 1. Pattern to the liver is nonspecific could be seen with fatty infiltration, diffuse hepatocellular disease or hepatitis.
== END | disposition home or self-care (01) ==
LOC: RADUSMAIN 07:21
PROVIDERS: ATTEND Family Medicine
DX: R74.8 Abnormal levels of other serum enzymes (principal)
CPT/HCPCS: 76700

== ENCOUNTER → 2021-05-26 | Outpatient (CLI) | payer MEDICAID ==
[2021-05-26 13:40] VITALS: BP 136/87; PULSE 97; RESP 16; TEMP 98.2; BMI 43.7
--- NOTE | 2021-05-26 14:15 | P.HPBAR ---
Bariatric H&P - History & Physicial H&P Date: 05/26/21 History & Physicial: Visit/CC: Initial Patient initial contact: Initial weight: 116.29 kg Initial weight in pounds: 256.38 Height: 5 ft 4.25 in Initial BMI: 43.7 Last weight: Current weight: 116.29 kg Current weight in pounds: 256.38 Current BMI: 43.7 [place] body weight (based on NIH guidelines): 54.998 kg Excess body weight loss: 0.0% The patient is a 30 year-old F who presents for Bariatric Assessment. She comes in for weight loss. She has tried weight watchers. She was on adipex but had tachycardia. Highest weight is at present. She lost 20 pounds and gained her weight. Her mother has troubles with weight. No food allergies. No pickey eating. No abdominal surgeries. No family history of esophageal or stomach cancer except pancreatic cancer in grandmother on mother's side. No dysphagia. No easy bruising or bleeding. No blood clots. She reports kidney stones. She has knee pain. She has hypertension for many years. She has severe reflux with spicey, tomatoes, chocolate. She denies ulcerative colitis. Her goal is just to get healthy. Non smoker. [facility] reviewed. Past Medical History Past Medical History: Hypertension Additional Past Medical History / Comment(s): PCOS History of Any Multi-Drug Resistant Organisms: None Reported Past Surgical History: No Surgical Hx Reported Past Anesthesia/Blood Transfusion Reactions: No Reported Reaction Additional Past Anesthesia/Blood Transfusion Reaction / Comm: 05/26/21 : Never had blood transfusion or surgery. Past Psychological History: No Psychological Hx Reported Smoking Status: Never smoker Past Alcohol Use History: Rare Past Drug Use History: None Reported Surgical - Exam Vital Signs Temp Pulse Resp BP 98.2 F 97 16 136/87 05/26/21 13:37 05/26/21 13:37 05/26/21 13:37 05/26/21 13:37 Bariatric Checklist Checklist: Plan: Checklist: EGD: 1. Hiatal hernia: 2. H. Pylori: HgbA1c: Vitamin D: Smoking: Never smoker Primary care physician referral: Elvia Perez Psychiatry clearance: Cardiology clearance: Sleep study: Diet journal: VTE risk score: VTE risk level: Rehab needs at discharge:
[2021-05-26 15:57] LABS: HCT 38.3 % (34.0-46.0); MCH 27.9 pg (25.0-35.0); MCHC 33.9 g/dL (31.0-37.0); MCV 82.2 fL (80.0-100.0); Mean Platelet Volume 6.8; Platelet Count 346 k/uL (150-450); RBC 4.66 m/uL (3.80-5.40); RDW 13.3 % (11.5-15.5); WBC 9.4 k/uL (3.8-10.6)
[2021-05-26 17:00] LABS: INR 0.9 (<1.2); Partial Thromboplastin Time 27.1 sec (22.0-30.0); Prothrombin Time 10.1 sec (9.0-12.0)
[2021-05-27 00:29] LABS: Hemoglobin A1C 6.7 % (4.0-6.0)
[2021-05-27 09:58] LABS: % Iron Saturation 13.13 (12.00-45.00); African American GFR (CKD) 116.3 (60.0-200.0); Albumin 4.5 g/dL (3.80-4.90); Albumin/Globulin Ratio 1.5 (1.60-3.17); Anion Gap 13.8 mmol/L (4.00-12.00); BUN/Creat Ratio 13.75 Ratio (12.00-20.00); Calcium 9.5 mg/dL (8.7-10.3); Carbon Dioxide 22.2 mmol/L (21.6-31.8); LDL Cholesterol,Calculated 117.4 mg/dL (0.0-131.0); Magnesium 1.6 mg/dL (1.5-2.4); Non-African American GFR(CKD) 100.3 (60.0-200.0); Phosphorus 3.9 mg/dL (2.4-5.1); Potassium 3.9 mmol/L (3.5-5.5); Total Bilirubin 0.7 mg/dL (0.2-1.2); Total Protein 7.5 g/dL (6.2-8.2); VLDL Calculation 30.6 mg/dL (5.00-40.00)
[2021-05-27 10:05] LABS: Ferritin 82.1 ng/mL (10.0-291.0)
[2021-05-27 13:17] LABS: Zinc, Serum 80 ug/dL (60-130)
[2021-05-28 06:23] LABS: Vitamin A 48 ug/dL (38-106)
[2021-05-28 11:35] LABS: Folate, Serum 5.9 ng/mL
== END | disposition home or self-care (01) ==
LOC: BARWHC3 13:03
PROVIDERS: ATTEND Surgery Plastic and Reconstructive Surgery
DX: E66.01 Morbid (severe) obesity due to excess calories (principal); E89.1 Postprocedural hypoinsulinemia; D50.8 Other iron deficiency anemias; K90.89 Other intestinal malabsorption; E55.9 Vitamin D deficiency, unspecified; K74.1 Hepatic sclerosis; N19 Unspecified kidney failure; K50.90 Crohn's disease, unspecified, without complications; Z68.41 Body mass index [BMI] 40.0-44.9, adult
CPT/HCPCS: 84255; 84134; 84425; 80061; 80053; 82607; 82728; 82525; 82746; 83540; 83550; 83735; 84100; 84443; 84590; 84630; 85027; 85610; 85730; 82306; 80323; 83970; 83036; 80307; 99202; 93005; G0482

== ENCOUNTER → 2021-07-28 | Outpatient (CLI) | payer MEDICAID, OTHER | END | disposition home or self-care (01) | LOC: LABWHC1 09:02 | PROVIDERS: ATTEND Emergency Medicine | DX: Z20.822 Contact with and (suspected) exposure to COVID-19 (principal) | CPT/HCPCS: 87635 ==

== ENCOUNTER → 2021-07-29 | Outpatient (CLI) | payer MEDICAID, OTHER | END | disposition home or self-care (01) | LOC: LABWHC1 08:29 | PROVIDERS: ATTEND Emergency Medicine | DX: Z20.822 Contact with and (suspected) exposure to COVID-19 (principal) | CPT/HCPCS: 87635 ==

== ENCOUNTER → 2021-12-06 | Outpatient (CLI) | payer MEDICAID ==
[2021-12-06 10:58] VITALS: BMI 43.0
== END ==
LOC: BARWHC3 08:41
PROVIDERS: ATTEND Surgery Plastic and Reconstructive Surgery
DX: E66.01 Morbid (severe) obesity due to excess calories (principal); Z71.3 Dietary counseling and surveillance; Z68.41 Body mass index [BMI] 40.0-44.9, adult
CPT/HCPCS: 97804

== ENCOUNTER → 2021-12-09 | Outpatient (CLI) | payer MEDICAID ==
[2021-12-10 12:38] LABS: Coronavirus SARS CoV-2 Not Detected (Not Detected)
== END | disposition home or self-care (01) ==
LOC: LABPAT 14:34
PROVIDERS: ATTEND Surgery Plastic and Reconstructive Surgery
DX: Z20.822 Contact with and (suspected) exposure to COVID-19 (principal)
CPT/HCPCS: U0003; C9803; U0005

== ENCOUNTER 2021-12-13 06:40 | Day surgery (SDC) | payer MEDICAID ==
[2021-11-24 11:26] VITALS: BMI 42.5
--- NOTE | 2021-11-28 20:26 | P.PN ---
Progress Note - Text Progress Note Date: 11/28/21 Case re-scheduled due to missing lab work.
[~2021-12-13 06:40] MED LIST: LACTATED RINGERS 1,000 ML IV SCH
[2021-12-13 07:27] VITALS: TEMP 98
--- NOTE | 2021-12-13 07:35 | P.GSHP ---
History of Present Illness H&P Date: 12/13/21 CHIEF COMPLAINT: GERD HISTORY OF PRESENT ILLNESS: The patient is a 31-year-old female who presents reports gastroesophageal reflux disease. Upper endoscopy was offered for further evaluation and management. PAST MEDICAL HISTORY: Please see list. PAST SURGICAL HISTORY: Please see list. MEDICATIONS: Please see list. ALLERGIES: Please see list. SOCIAL HISTORY: No illicit drug use FAMILY HISTORY: No reports of Crohn disease or ulcerative colitis. REVIEW OF ORGAN SYSTEMS: CONSTITUTIONAL: No reports of fevers or chills. GI: Denies any blood in stools or constipation. PHYSICAL EXAM: VITAL SIGNS: Stable GENERAL: Well-developed and pleasant in no acute distress. HEENT: No scleral icterus. Extraocular movements grossly intact. Moist buccal mucosa. NECK: Supple without lymphadenopathy. CHEST: Unlabored respirations. Equal bilateral excursions. CARDIOVASCULAR: Regular rate and rhythm. Distal 2+ pulses. ABDOMEN: Soft, nondistended. MUSCULOSKELETAL: No clubbing, cyanosis, or edema. ASSESSMENT: 1. Gastroesophageal reflux disease PLAN: 1. Recommend proceeding with an upper endoscopy Past Medical History Past Medical History: Diabetes Mellitus, GERD/Reflux, Hypertension Additional Past Medical History / Comment(s): PCOS. OCCASIONAL EXTRA HEART BEAT. History of Any Multi-Drug Resistant Organisms: None Reported Past Surgical History: No Surgical Hx Reported Past Anesthesia/Blood Transfusion Reactions: No Reported Reaction Additional Past Anesthesia/Blood Transfusion Reaction / Comment(s): NO ANESTHESIA HX. Past Psychological History: No Psychological Hx Reported Smoking Status: Never smoker Past Alcohol Use History: None Reported Past Drug Use History: None Reported - Past Family History Mother Family Medical History: No Reported History Medications and Allergies Home Medications Medication Instructions Recorded Confirmed Type Cholecalciferol (Vitamin D3) 5,000 unit PO 1800 01/21/19 12/13/21 History [Vitamin D3] Labetalol [Trandate] 200 mg PO 0700,1800 05/26/21 12/13/21 History Vitamin E (Dl,Tocopheryl Acet) 400 unit PO DAILY 05/26/21 12/13/21 History [Vitamin E (400 Iu = 180 mg)] Dapagliflozin/Metformin HCl 1 tab PO DAILY 09/13/21 12/13/21 History [Xigduo Xr 10 mg-1,000 mg Tab] Losartan Potassium 100 mg PO 1800 10/08/21 12/09/21 History Omeprazole 40 mg PO DIRECTED PRN 10/08/21 12/13/21 History hydroCHLOROthiazide 25 mg PO 1800 10/08/21 12/09/21 History Allergies Allergy/AdvReac Type Severity Reaction Status Date / Time No Known Allergies Allergy Verified 12/13/21 07:20 Surgical - Exam Vital Signs Temp Pulse Resp BP Pulse Ox 98.0 F 85 16 138/66 97 12/13/21 07:26 12/13/21 07:26 12/13/21 07:26 12/13/21 07:26 12/13/21 07:26
[2021-12-13] MEDS ORDERED: PROPOFOL 10 MG/ML 20 ML VIAL IV ONE (07:40)
[2021-12-13] MEDS ORDERED: LIDOCAINE 1% INJ 10MG/ML (20 ML MDV) ONE (07:40)
[2021-12-13 07:48] LABS: Glucose,Whole Blood 121 mg/dL (75-99)
[2021-12-13 08:15] VITALS: RESP 16
[2021-12-13 08:24] VITALS: BP 120/70; PULSE 80
--- NOTE | 2021-12-13 08:31 | P.PCN ---
Date of Procedure: 12/13/21 Description of Procedure: PREOPERATIVE DIAGNOSIS: Gastroesophageal reflux disease. Morbid obesity. POSTOPERATIVE DIAGNOSIS: Gastritis. Gastroesophageal reflux disease. Morbid obesity. OPERATION: Esophagogastroduodenoscopy with biopsies along antrum. SURGEON: Lucy Kimball MD ANESTHESIA: MAC. INDICATIONS: The patient is a 31-year-old female who presents with a history of reflux disease. Benefits and risks of the procedure were described. Informed consent was obtained. DESCRIPTION: The patient was brought into the endoscopy suite and laid in the left lateral decubitus position. An Olympus gastroscope was passed along the posterior oropharynx down to the distal esophagus where the squamocolumnar junction was encountered at 38 cm from the incisors. The stomach was entered and no bile reflux was found. Additional findings are listed below. Biopsies with cold forceps were obtained of the antrum. The first through third portion of the duodenum was examined and unremarkable. Retroflexion of the scope confirmed Hill grade 2 lower esophageal valve. The squamocolumnar junction demonstrated LA grade B erosive esophagitis. The stomach was desufflated. The patient tolerated the procedure well. FINDINGS: Squamocolumnar junction 38 cm from the incisors. Diaphragmatic hiatus at 38 cm. Hill grade 2 lower esophageal valve. LA grade B erosive esophagitis. No active duodenitis. Chronic gastritis RECOMMENDATIONS: Upper endoscopy as needed. Plan - Discharge Summary Discharge Rx Participant: No New Discharge Prescriptions: Continue Cholecalciferol (Vitamin D3) [Vitamin D3] 5,000 unit PO 1800 Vitamin E (Dl,Tocopheryl Acet) [Vitamin E (400 Iu = 180 mg)] 400 unit PO DAILY Dapagliflozin/Metformin HCl [Xigduo Xr 10 mg-1,000 mg Tab] 1 tab PO DAILY Omeprazole 40 mg PO DIRECTED PRN PRN Reason: Heartburn Labetalol [Trandate] 200 mg PO 0700,1800 Losartan Potassium 100 mg PO 1800 hydroCHLOROthiazide 25 mg PO 1800 Discharge Medication List Cholecalciferol (Vitamin D3) [Vitamin D3] 5,000 unit PO 1800 01/21/19 [History] Labetalol [Trandate] 200 mg PO 0700,1800 05/26/21 [History] Vitamin E (Dl,Tocopheryl Acet) [Vitamin E (400 Iu = 180 mg)] 400 unit PO DAILY 05/26/21 [History] Dapagliflozin/Metformin HCl [Xigduo Xr 10 mg-1,000 mg Tab] 1 tab PO DAILY 09/13/21 [History] Losartan Potassium 100 mg PO 1800 10/08/21 [History] Omeprazole 40 mg PO DIRECTED PRN 10/08/21 [History] hydroCHLOROthiazide 25 mg PO 1800 10/08/21 [History] Follow up Appointment(s)/Referral(s): [facility] [NON-STAFF] - 12/29/21 Patient Instructions/Handouts: Diet for Stomach Ulcers and Gastritis (GEN), Gastritis (GEN) Discharge Disposition: HOME SELF-CARE
== END 2021-12-13 08:52 | disposition home or self-care (01) ==
LOC: ORWHC2ENDO 06:40
PROVIDERS: ATTEND Surgery Plastic and Reconstructive Surgery
DX: K21.9 Gastro-esophageal reflux disease without esophagitis (principal); K29.70 Gastritis, unspecified, without bleeding; E11.9 Type 2 diabetes mellitus without complications; I10 Essential (primary) hypertension
CPT/HCPCS: 43239; 81025; 88305; J2001; J2704

== ENCOUNTER → 2021-12-29 | Outpatient (CLI) | payer MEDICAID ==
--- NOTE | 2021-12-29 14:13 | P.BASOAP ---
Subjective Progress Note Date: 12/29/21 DATE OF SERVICE: 12/29/2021 CHIEF COMPLAINT: Morbid obesity HISTORY OF PRESENT ILLNESS: Jasmin Gonzáles is a 31-year-old female who comes with lifelong morbid obesity. As a result of her morbid obesity, she has developed diabetes type II, hypertensive heart disease and osteoarthritis of the knees. She is looking into the gastric bypass. She is completing medical supervised weight loss including psych assessment. She denies new abdominal pain. She completed an upper endoscopy. At height of 5 feet 4.25 inches, her ideal body weight is 144 pounds. Highest weight 256 pounds. Her body mass index was 43.7. Today she comes in 239 pounds from 246 pounds 2 months ago. She has lost 7 pounds in 2 months. She is 95 pounds overweight. PAST MEDICAL HISTORY: 1. Morbid obesity due to excess calories 2. Body mass index of 43.7, initial 3. Hypertensive heart disease. 4. Diabetes type 2, non-insulin dependent 5. Polycystic ovarian syndrome 6. Osteoarthritis knees. 7. Gastroesphageal reflux disease. PAST SURGICAL HISTORY: 1. No abdominal surgery HOME MEDICATIONS: Home Medications Medication Instructions Recorded Confirmed Cholecalciferol (Vitamin D3) 5,000 unit PO 1800 01/21/19 03/02/22 [Vitamin D3] Labetalol [Trandate] 200 mg PO 0700,1800 05/26/21 03/02/22 Vitamin E (Dl,Tocopheryl Acet) 400 unit PO DAILY 05/26/21 03/02/22 [Vitamin E (400 Iu = 180 mg)] Dapagliflozin/Metformin HCl 1 tab PO DAILY 09/13/21 03/02/22 [Xigduo Xr 10 mg-1,000 mg Tab] Losartan Potassium 100 mg PO 1800 10/08/21 03/02/22 Omeprazole 40 mg PO DIRECTED PRN 10/08/21 03/02/22 hydroCHLOROthiazide 25 mg PO 1800 10/08/21 03/02/22 ALLERGIES: Allergies Allergy/AdvReac Type Severity Reaction Status Date / Time No Known Allergies Allergy Verified 12/13/21 07:20 SOCIAL HISTORY: No past tobacco use. No food allergies. FAMILY HISTORY: No family history of ulcerative colitis disease or Crohn's disease. Family history of morbid obesity. No lupus in the family. Her mother has troubles with weight. She has no family history of esophageal or stomach cancer except pancreatic cancer in grandmother on mother's side. REVIEW OF ORGAN SYSTEMS: CONSTITUTIONAL: At height of 5 feet 4.25 inches, her ideal body weight is 144 pounds. She comes in 256 pounds, her highest weight. Her body mass index is 43.7. She is 112 pounds overweight. HEENT: Denies any active troubles with vision or hearing. No reports of dysphagia ENDOCRINE: Has diabetes. No hypothyroidism. CARDIOVASCULAR: No past reports of palpitations or heart attacks or chest pain. Has hypertensive heart disease. She has hypertension for many years. RESPIRATORY: Has daytime somnolence. Has asthma. Has chronic obstructive pulmonary disease. GASTROINTESTINAL: Denies any bright red blood per rectum. No diarrhea. No constipation. Has gastroesophageal reflux disease. She denies ulcerative colitis. GENITOURINARY: Denies bladder urgency. No recent blood in urine. She reports kidney stones. MUSCULOSKELETAL: Has lower back pain and joint pain. Has osteoarthritis of the knees. She has knee pain. NEURO: No headaches. No seizure disorders. Has neuropathy. PSYCH: Denies depression. No suicidal ideation. RHEUMATOLOGIC: No lupus. No rheumatoid arthritis. HEMATOLOGIC: Denies any abnormal bleeding or bruising. Denies past history of DVTs. SKIN: No rash. No skin cancer. PHYSICAL EXAM: VITAL SIGNS: Height 5 foot 4.25 inches, weight 246 pounds. BMI 42.1 Vital Signs Temp 97.9 F 12/29/21 13:39 Pulse 106 H 12/29/21 13:39 Resp 16 12/29/21 13:39 BP 141/94 12/29/21 13:39 Pulse Ox GENERAL: Well-developed in no acute distress. HEENT: No scleral icterus. Extraocular movements grossly intact. Hears conversational speech. No nasal drainage. NECK: Supple without lymphadenopathy. CHEST: Nonlabored respirations with equal bilateral excursions. CARDIOVASCULAR: Tachycardic. Distal 2+ pulses. ABDOMEN: Obese, soft, nontender, nondistended. MUSCULOSKELETAL: No clubbing, cyanosis. NEURO: No focal or lateralizing signs. Cranial nerves 2 through 12 grossly within normal limits. PSYCH: Appropriate affect. Alert and oriented to person, place and time. SKIN: Good skin turgor. Well perfused. LABS: Hgb A1c 6.7%. LFTs elevated. UDS negative. EKG: Normal sinus rhythm. EGD FINDINGS: Squamocolumnar junction 38 cm from the incisors. Diaphragmatic hiatus at 38 cm. Hill grade 2 lower esophageal valve. LA grade B erosive esophagitis. No active duodenitis. Chronic gastritis Final Pathologic Diagnosis GASTRIC ANTRUM, BIOPSY: Chronic gastritis. Helicobacter pylori organisms are not identified on routine H+E sections. ASSESSMENT: 1. Morbid obesity due to excess calories 2. Body mass index of 43.7, initial 3. Hypertensive heart disease. 4. Diabetes type 2, non-insulin dependent 5. Polycystic ovarian syndrome 6. Osteoarthritis knees. 7. Gastroesphageal reflux disease. PLAN: 1. Recommend completion of medial supervised weight loss. 2. She is looking into the gastric bypass. 3. Completion of psych assessment. Objective - Vital Signs Vital signs: Vital Signs Temp 97.9 F 12/29/21 13:39 Pulse 106 H 12/29/21 13:39 Resp 16 12/29/21 13:39 BP 141/94 12/29/21 13:39 Pulse Ox Intake & Output 12/28/21 12/29/21 12/29/21 18:59 06:59 18:59 Weight 112.037 kg Assessment/Plan Plan: Date: 12/29/21 Initial Weight: 116.29 kg Initial BMI: 49.6 Current Weight: 112.037 kg Current BMI: 47.8 Type of Surgery: Total Volume in Band: Previous Volume: Volume Removed: Volume Added: Band Size:
[2021-12-29 17:01] VITALS: BP 141/94; PULSE 106; RESP 16; TEMP 97.9; BMI 47.8
== END ==
LOC: BARWHC3 13:05
PROVIDERS: ATTEND Surgery Plastic and Reconstructive Surgery
DX: E66.01 Morbid (severe) obesity due to excess calories (principal); Z68.41 Body mass index [BMI] 40.0-44.9, adult; I11.9 Hypertensive heart disease without heart failure; E11.9 Type 2 diabetes mellitus without complications; E28.2 Polycystic ovarian syndrome; M17.0 Bilateral primary osteoarthritis of knee; K21.9 Gastro-esophageal reflux disease without esophagitis
CPT/HCPCS: 99211

== ENCOUNTER → 2022-03-02 | Outpatient (CLI) | payer MEDICAID ==
[2022-03-02 14:39] LABS: Basophils # (A) 0.08 X 10*3/uL (0.00-0.10); Basophils % (A) 0.8 %; Eosinophils # (A) 0.31 X 10*3/uL (0.04-0.35); Eosinophils % (A) 3.2 %; HCT 41.6 % (37.2-46.3); HGB 13.3 g/dL (12.0-15.0); Immature Grans, Automated 0.2 %; Lymphocytes # (A) 3.46 X 10*3/uL (0.90-5.00); Lymphocytes % (A) 35.7 %; MCH 24.9 pg (27.0-32.0); MCV 77.9 fL (80.0-97.0); Mean Platelet Volume 9.6 fL (9.5-12.2); Monocytes # (A) 0.49 X 10*3/uL (0.20-1.00); Monocytes % (A) 5.1 %; NRBC Per 100 WBC 0 /100 WBCS (0.0-0.0); Neutrophils # (A) 5.34 X 10*3/uL (1.80-7.70); Platelet Count 408 X 10*3/uL (140-440); RBC 5.34 X 10*6/uL (4.10-5.20); RDW 14.5 % (11.5-14.5)
[2022-03-02 18:56] LABS: African American GFR (CKD) 115.5 (60.0-200.0); Albumin 4.7 g/dL (3.8-4.9); Albumin/Globulin Ratio 1.34 (1.60-3.17); Anion Gap 14.4 mmol/L (10.00-18.00); BUN/Creat Ratio 24.25 Ratio (12.00-20.00); Blood Urea Nitrogen 19.4 mg/dL (9.0-27.0); Calcium 9.8 mg/dL (8.7-10.3); Carbon Dioxide 23.6 mmol/L (20.0-27.5); Globulin 3.5 g/dL (1.6-3.3); Non-African American GFR(CKD) 99.6 (60.0-200.0); Potassium 3.3 mmol/L (3.5-5.5); Total Bilirubin 0.8 mg/dL (0.30-1.20); Total Protein 8.2 g/dL (6.2-8.2)
== END | disposition home or self-care (01) ==
LOC: LABPAT 09:35
PROVIDERS: ATTEND Surgery Plastic and Reconstructive Surgery
DX: Z01.812 Encounter for preprocedural laboratory examination (principal)
CPT/HCPCS: 80053; 85025

== ENCOUNTER → 2022-03-02 | Outpatient (CLI) | payer MEDICAID ==
--- NOTE | 2022-03-02 09:25 | P.BASOAP ---
Subjective Progress Note Date: 03/02/22 DATE OF SERVICE: 03/02/2022 CHIEF COMPLAINT: Morbid obesity HISTORY OF PRESENT ILLNESS: Jasmin Gonzáles is a 31-year-old female who comes with lifelong morbid obesity. As a result of her morbid obesity, she has developed diabetes type II, hypertensive heart disease and osteoarthritis of the knees. She has completed medical supervised weight loss. She is looking into the gastric bypass. At height of 5 feet 4.25 inches, her ideal body weight is 144 pounds. Highest weight 256 pounds. Her body mass index was 43.7. Today she comes in 239 pounds from 246 pounds 2 months ago. She has lost 7 pounds in 2 months. She is 95 pounds overweight. PAST MEDICAL HISTORY: 1. Morbid obesity due to excess calories 2. Body mass index of 43.7, initial 3. Hypertensive heart disease. 4. Diabetes type 2, non-insulin dependent 5. Polycystic ovarian syndrome 6. Osteoarthritis knees. 7. Gastroesphageal reflux disease. PAST SURGICAL HISTORY: 1. No abdominal surgery HOME MEDICATIONS: Home Medications Medication Instructions Recorded Confirmed Cholecalciferol (Vitamin D3) 5,000 unit PO 1800 01/21/19 03/02/22 [Vitamin D3] Labetalol [Trandate] 200 mg PO 0700,1800 05/26/21 03/02/22 Vitamin E (Dl,Tocopheryl Acet) 400 unit PO DAILY 05/26/21 03/02/22 [Vitamin E (400 Iu = 180 mg)] Dapagliflozin/Metformin HCl 1 tab PO DAILY 09/13/21 03/02/22 [Xigduo Xr 10 mg-1,000 mg Tab] Losartan Potassium 100 mg PO 1800 10/08/21 03/02/22 Omeprazole 40 mg PO DIRECTED PRN 10/08/21 03/02/22 hydroCHLOROthiazide 25 mg PO 1800 10/08/21 03/02/22 ALLERGIES: Allergies Allergy/AdvReac Type Severity Reaction Status Date / Time No Known Allergies Allergy Verified 12/13/21 07:20 SOCIAL HISTORY: No past tobacco use. No food allergies. FAMILY HISTORY: No family history of ulcerative colitis disease or Crohn's disease. Family history of morbid obesity. No lupus in the family. Her mother has troubles with weight. She has no family history of esophageal or stomach cancer except pancreatic cancer in grandmother on mother's side. REVIEW OF ORGAN SYSTEMS: CONSTITUTIONAL: At height of 5 feet 4.25 inches, her ideal body weight is 144 pounds. She comes in 256 pounds, her highest weight. Her body mass index is 43.7. She is 112 pounds overweight. HEENT: Denies any active troubles with vision or hearing. No reports of dysphagia ENDOCRINE: Has diabetes. No hypothyroidism. CARDIOVASCULAR: No past reports of palpitations or heart attacks or chest pain. Has hypertensive heart disease. She has hypertension for many years. RESPIRATORY: Has daytime somnolence. Has asthma. Has chronic obstructive pulmonary disease. GASTROINTESTINAL: Denies any bright red blood per rectum. No diarrhea. No constipation. Has gastroesophageal reflux disease. She denies ulcerative colitis. GENITOURINARY: Denies bladder urgency. No recent blood in urine. She reports kidney stones. MUSCULOSKELETAL: Has lower back pain and joint pain. Has osteoarthritis of the knees. She has knee pain. NEURO: No headaches. No seizure disorders. Has neuropathy. PSYCH: Denies depression. No suicidal ideation. RHEUMATOLOGIC: No lupus. No rheumatoid arthritis. HEMATOLOGIC: Denies any abnormal bleeding or bruising. Denies past history of DVTs. SKIN: No rash. No skin cancer. PHYSICAL EXAM: VITAL SIGNS: Height 5 foot 4.25 inches, weight 239 pounds. BMI 40.9 Vital Signs Temp 98.2 F 03/02/22 12:47 Pulse 80 03/02/22 12:47 Resp BP 127/86 03/02/22 12:47 Pulse Ox Intake & Output 03/02/22 03/02/22 03/03/22 06:59 18:59 06:59 Weight 108.862 kg GENERAL: Well-developed in no acute distress. HEENT: No scleral icterus. Extraocular movements grossly intact. Hears conversational speech. No nasal drainage. NECK: Supple without lymphadenopathy. CHEST: Nonlabored respirations with equal bilateral excursions. CARDIOVASCULAR: Regular rate. Distal 2+ pulses. ABDOMEN: Obese, soft, nontender, nondistended. MUSCULOSKELETAL: No clubbing, cyanosis. NEURO: No focal or lateralizing signs. Cranial nerves 2 through 12 grossly within normal limits. PSYCH: Appropriate affect. Alert and oriented to person, place and time. SKIN: Good skin turgor. Well perfused. LABS: Hgb A1c 6.7%. LFTs elevated. UDS negative. EKG: Normal sinus rhythm. EGD FINDINGS: Squamocolumnar junction 38 cm from the incisors. Diaphragmatic hiatus at 38 cm. Hill grade 2 lower esophageal valve. LA grade B erosive esophagitis. No active duodenitis. Chronic gastritis Final Pathologic Diagnosis GASTRIC ANTRUM, BIOPSY: Chronic gastritis. Helicobacter pylori organisms are not identified on routine H+E sections. ASSESSMENT: 1. Morbid obesity due to excess calories 2. Body mass index of 43.7, initial 3. Hypertensive heart disease. 4. Diabetes type 2, non-insulin dependent 5. Polycystic ovarian syndrome 6. Osteoarthritis knees. 7. Gastroesphageal reflux disease. PLAN: 1. Bariatric options between a sleeve, band and a Leida-en-Y gastric bypass were reviewed in detail. The patient elected for a gastric bypass. Robotic assisted approach described. 2. The [place] [facility] Data was also reviewed with benefits and risks as described. 3. An 8 page second-generation bariatric consent form was reviewed in detail including potential of bleeding, infection, leaks, adequate weight loss, nutritional deficiencies which the patient demonstrated understanding of the risks. 4. A 2 week high-protein low caloric 800 kcal diet described to address hepatomegaly. 5. Preoperative labs including complete metabolic panel and CBC with type and screen recommended. 6. DVT prophylaxis per [place] [facility]. 7. Antibiotic prophylaxis. 8. Inpatient hospitalization anticipated for more than 2 nights. 9. All questions and concerns were addressed with the patient. 10. She is at elevated risk for perioperative complications due to diabetes type II and hypertensive heart disease. 11. Overall, patient has expressed understanding of bariatric care including postoperative diet and commitment of lifestyle. Patient should benefit from surgical intervention for correction of her morbid obesity. 12. NSQIP calculator obtained. 13. Consent the gastric bypass reviewed. Surgical options in the presence of scar tissue was reviewed. On the condition of findings of scar tissue, patient reports she would rather undergo lysis of adhesions with the deferred gastric bypass. 14. Hydration advised between 2-3 L day prior to surgery. A 15. Additionally using Hibiclens soap described. 16. Following her protein diet and also reviewed for excellent recovery and surgery. 17. Benefits of surgery described. All questions addressed. Patient encouraged to have follow-up questions. Assessment/Plan Plan: Date: Initial Weight: 116.29 kg Initial BMI: Current Weight: Current BMI: Type of Surgery: Total Volume in Band: Previous Volume: Volume Removed: Volume Added: Band Size:
[2022-03-02 12:49] VITALS: BP 127/86; PULSE 80; TEMP 98.2; BMI 40.8
== END ==
LOC: BARWHC3 08:59
PROVIDERS: ATTEND Surgery Plastic and Reconstructive Surgery
DX: E66.01 Morbid (severe) obesity due to excess calories (principal); I11.9 Hypertensive heart disease without heart failure; E11.9 Type 2 diabetes mellitus without complications; E28.2 Polycystic ovarian syndrome; M17.0 Bilateral primary osteoarthritis of knee; K21.9 Gastro-esophageal reflux disease without esophagitis; Z68.41 Body mass index [BMI] 40.0-44.9, adult
CPT/HCPCS: 99211

== ENCOUNTER 2022-03-14 10:07 | Inpatient (IN) | payer MEDICAID ==
[2022-03-10 11:10] VITALS: BMI 41.0
--- NOTE | 2022-03-14 07:36 | P.GSHP ---
History of Present Illness H&P Date: 03/14/22 CHIEF COMPLAINT: Morbid obesity HISTORY OF PRESENT ILLNESS: Jasmin Gonzáles is a 31-year-old female who comes with lifelong morbid obesity. As a result of her morbid obesity, she has developed diabetes type II, hypertensive heart disease and osteoarthritis of the knees. She has completed medical supervised weight loss. She is looking into the gastric bypass. At height of 5 feet 4.25 inches, her ideal body weight is 144 pounds. Highest weight 256 pounds. Her body mass index was 43.7. Today she comes in 238 pounds. She is 95 pounds overweight. PAST MEDICAL HISTORY: 1. Morbid obesity due to excess calories 2. Body mass index of 43.7, initial 3. Hypertensive heart disease. 4. Diabetes type 2, non-insulin dependent 5. Polycystic ovarian syndrome 6. Osteoarthritis knees. 7. Gastroesphageal reflux disease. PAST SURGICAL HISTORY: 1. No abdominal surgery HOME MEDICATIONS: ALLERGIES: SOCIAL HISTORY: No past tobacco use. No food allergies. FAMILY HISTORY: No family history of ulcerative colitis disease or Crohn's disease. Family history of morbid obesity. No lupus in the family. Her mother has troubles with weight. She has no family history of esophageal or stomach cancer except pancreatic cancer in grandmother on mother's side. REVIEW OF ORGAN SYSTEMS: CONSTITUTIONAL: At height of 5 feet 4.25 inches, her ideal body weight is 144 pounds. She comes in 256 pounds, her highest weight. Her body mass index is 43.7. She is 112 pounds overweight. HEENT: Denies any active troubles with vision or hearing. No reports of dysphagia ENDOCRINE: Has diabetes. No hypothyroidism. CARDIOVASCULAR: No past reports of palpitations or heart attacks or chest pain. Has hypertensive heart disease. She has hypertension for many years. RESPIRATORY: Has daytime somnolence. Has asthma. Has chronic obstructive pulmonary disease. GASTROINTESTINAL: Denies any bright red blood per rectum. No diarrhea. No constipation. Has gastroesophageal reflux disease. She denies ulcerative colitis. GENITOURINARY: Denies bladder urgency. No recent blood in urine. She reports kidney stones. MUSCULOSKELETAL: Has lower back pain and joint pain. Has osteoarthritis of the knees. She has knee pain. NEURO: No headaches. No seizure disorders. Has neuropathy. PSYCH: Denies depression. No suicidal ideation. RHEUMATOLOGIC: No lupus. No rheumatoid arthritis. HEMATOLOGIC: Denies any abnormal bleeding or bruising. Denies past history of DVTs. SKIN: No rash. No skin cancer. PHYSICAL EXAM: VITAL SIGNS: Height 5 foot 4.25 inches, weight 239 pounds. BMI 40.9 GENERAL: Well-developed in no acute distress. HEENT: No scleral icterus. Extraocular movements grossly intact. Hears conversational speech. No nasal drainage. NECK: Supple without lymphadenopathy. CHEST: Nonlabored respirations with equal bilateral excursions. CARDIOVASCULAR: Regular rate. Distal 2+ pulses. ABDOMEN: Obese, soft, nontender, nondistended. MUSCULOSKELETAL: No clubbing, cyanosis. NEURO: No focal or lateralizing signs. Cranial nerves 2 through 12 grossly within normal limits. PSYCH: Appropriate affect. Alert and oriented to person, place and time. SKIN: Good skin turgor. Well perfused. ASSESSMENT: 1. Morbid obesity due to excess calories 2. Body mass index of 43.7, initial 3. Hypertensive heart disease. 4. Diabetes type 2, non-insulin dependent 5. Polycystic ovarian syndrome 6. Osteoarthritis knees. 7. Gastroesphageal reflux disease. PLAN: 1. Bariatric options between a sleeve, band and a Leida-en-Y gastric bypass were reviewed in detail. The patient elected for a gastric bypass. Robotic assisted approach described. 2. DVT prophylaxis with heparin 3. Antibiotic prophylaxis. 4. Inpatient hospitalization anticipated for more than 2 nights. 5. She is at elevated risk for perioperative complications due to diabetes type II and hypertensive heart disease. 6. Consent the gastric bypass reviewed. Surgical options in the presence of scar tissue was reviewed. On the condition of findings of scar tissue, patient reports she would rather undergo lysis of adhesions with the deferred gastric bypass. Past Medical History Past Medical History: Diabetes Mellitus, GERD/Reflux, Hypertension Additional Past Medical History / Comment(s): pcos, hx kidney stones., hx of covid december 2019 and sep 2021., Pt currently on high protein diet per Drs instructions. History of Any Multi-Drug Resistant Organisms: None Reported Past Surgical History: No Surgical Hx Reported Additional Past Surgical History / Comment(s): egd Past Anesthesia/Blood Transfusion Reactions: No Reported Reaction Additional Past Anesthesia/Blood Transfusion Reaction / Comment(s): no hx of general anesthesia Past Psychological History: No Psychological Hx Reported Smoking Status: Never smoker Past Alcohol Use History: None Reported Past Drug Use History: None Reported - Past Family History Mother Family Medical History: No Reported History Medications and Allergies Home Medications Medication Instructions Recorded Confirmed Type Cholecalciferol (Vitamin D3) 5,000 unit PO 1800 01/21/19 03/10/22 History [Vitamin D3] Labetalol [Trandate] 200 mg PO BID 05/26/21 03/10/22 History Dapagliflozin/Metformin HCl 1 tab PO DAILY 09/13/21 03/10/22 History [Xigduo Xr 10 mg-1,000 mg Tab] Losartan Potassium 100 mg PO HS 10/08/21 03/10/22 History Omeprazole 40 mg PO DAILY PRN 10/08/21 03/10/22 History hydroCHLOROthiazide 25 mg PO HS 10/08/21 03/10/22 History Multivitamins, Thera [Multivitamin 1 tab PO DAILY 03/10/22 03/10/22 History (formulary)] Allergies Allergy/AdvReac Type Severity Reaction Status Date / Time No Known Allergies Allergy Verified 03/10/22 10:43
[~2022-03-14 10:07] MED LIST changes: +ACETAMINOPHEN TAB 500 MG TAB PO PRN; +CHLORHEXIDINE GLUCONATE 15 ML CUP MUCOUS MEM PRN; +DEXAMETHASONE SOD PHOSPHATE 4 MG/ML 1 ML VIAL IV ONE; +GABAPENTIN 300 MG CAP PO PRN; +HEPARIN SODIUM,PORCINE/PF 5,000 UNIT/0.5 ML SYRINGE SQ PRN; +HYDROmorphone 0.5 MG/0.5 ML SYRINGE IVP PRN; -LACTATED RINGERS 1,000 ML IV SCH; +MIDAZOLAM 2 MG/2 ML VIAL IV PRN; +ONDANSETRON 4 MG/2 ML VIAL IVP ONE; +PANTOPRAZOLE 40 MG/10 ML VIAL IVP PRN; +SCOPOLAMINE 1 MG/72 HR PATCH TRANSDERM ONE; +SCOPOLAMINE 1 MG/72 HR PATCH TRANSDERM PRN
[2022-03-14] MEDS: LACTATED RINGERS 1,000 ML IV SCH (10:50)
[2022-03-14 10:51] LABS: Glucose,Whole Blood 104 mg/dL (75-99)
--- NOTE | 2022-03-14 11:03 | P.HPADDEND ---
H&P Addendum H&P Addendum Date: 03/14/22 Benefits and risks of surgery reviewed. Alternatives for management of severe intra-abdominal adhesions described for which patient wanted deferment of her gastric bypass with lysis of adhesions if needed. Also, patient gave consent for imaging including video of her procedure.
[2022-03-14] MEDS ORDERED: HYDROmorphone (PF) 1 MG/ML ONE (11:32)
[2022-03-14] MEDS ORDERED: GLYCOPYRROLATE 0.2 MG/ML 2 ML VIAL ONE (11:32)
[2022-03-14] MEDS ORDERED: fentaNYL (PF) 50 MCG/ML 2 ML AMP ONE (11:32)
[2022-03-14] MEDS ORDERED: LIDOCAINE 2% INJ 20 MG/ML (2 ML VIAL) ONE (11:32)
[2022-03-14] MEDS ORDERED: SUCCINYLCHOLINE CHLORIDE 100 MG/5 ML SYR IV ONE (11:32)
[2022-03-14] MEDS ORDERED: NEOSTIGMINE 1 MG/ML 10 ML VIAL ONE (11:32)
[2022-03-14] MEDS ORDERED: PHENYLEPHRINE-0.9% NACL SYG 1,000 MCG/10 ML SYRINGE ONE (11:32)
[2022-03-14] MEDS ORDERED: MIDAZOLAM 2 MG/2 ML VIAL ONE (11:32)
[2022-03-14] MEDS ORDERED: ROCURONIUM 10 MG/ML (5 ML VIAL) IV ONE (11:32)
[2022-03-14] MEDS ORDERED: PROPOFOL 10 MG/ML 20 ML VIAL IV ONE (11:32)
[2022-03-14] MEDS ORDERED: KETOROLAC 15 MG/ML 1 ML VIAL ONE (11:32)
[2022-03-14 11:52] LABS: ALT 120 U/L (4-34); AST 66 U/L (14-36); African American GFR (CKD) >90 (>60 ml/min/1.73 sqM); Albumin 4.8 g/dL (3.5-5.0); Alkaline Phosphatase 87 U/L (38-126); Anion Gap 9 mmol/L; Blood Urea Nitrogen 18 mg/dL (7-17); Calcium 9.4 mg/dL (8.4-10.2); Carbon Dioxide 29 mmol/L (22-30); Chloride 101 mmol/L (98-107); Glucose 96 mg/dL (74-99); Non-African American GFR(CKD) >90 (>60 ml/min/1.73 sqM); Potassium 3.2 mmol/L (3.5-5.1); Sodium 139 mmol/L (137-145); Total Protein 7.8 g/dL (6.3-8.2)
[2022-03-14] MEDS ORDERED: LIDOCAINE 0.5%-EPI 1:200,000 50 ML VIAL SQ ONE ×2 (11:59→12:00)
[2022-03-14] MEDS ORDERED: LACTATED RINGERS 1,000 ML IV ONE (12:46)
[2022-03-14 15:01] LABS: Glucose,Whole Blood 156 mg/dL (75-99)
[2022-03-14] MEDS ORDERED: Potassium Replacement Protocol 1 EACH MISC MISCELLANE PRN (15:05)
[2022-03-14] MEDS ORDERED: diphenhydrAMINE 50 MG/ML 1 ML VIAL IVP PRN (15:06)
[2022-03-14] MEDS ORDERED: NALOXONE 0.4 MG/ML 1 ML VIAL IV PRN (15:06)
[2022-03-14] MEDS ORDERED: fentaNYL (PF) 50 MCG/ML 2 ML AMP IVP PRN (15:10)
--- NOTE | 2022-03-14 15:21 | P.OP ---
Date of Procedure: 03/14/22 Description of Procedure: SURGEON: TNAG FORMAN MD PREOPERATIVE DIAGNOSES: 1. Morbid obesity due to excess calories 2. Body mass index of 43.7, initial 3. Hypertensive heart disease. 4. Diabetes type 2, non-insulin dependent 5. Polycystic ovarian syndrome 6. Osteoarthritis knees. 7. Gastroesphageal reflux disease. POSTOPERATIVE DIAGNOSES: 1. Morbid obesity due to excess calories 2. Body mass index of 43.7, initial 3. Hypertensive heart disease. 4. Diabetes type 2, non-insulin dependent 5. Polycystic ovarian syndrome 6. Osteoarthritis knees. 7. Gastroesphageal reflux disease. OPERATION: 1. Robotic assisted da Sari Xi laparoscopic Adis-en-Y gastric bypass, 100 cm antecolic antegastric Adis limb, with 21 mm EEA. 2. Intraoperative esophagogastrojejunoscopy. ANESTHESIA: GETA and local ESTIMATED BLOOD LOSS: 20 mL SPECIMENS REMOVED: None. COMPLICATIONS: NONE. Operative Findings: 1. Biliopancreatic limb 60 cm 2. Bypass performed using 100 cm adis limb secondary to avoid increased tension at 150 cm. 3. Jejunojejunostomy and Manuel's defects closed using 2-0 V-LOC, green 4. Leak test negative with gastrojejunal anastomosis patent and hemostatic. 5. Reinforcement sutures were placed along the gastrojejunal anastomosis at 9:00 and 3:00 and 12:00. INDICATIONS: Jasmin Gonzáles is a 31-year-old female who comes with lifelong morbid obesity. As a result of her morbid obesity, she has developed diabetes type II, hypertensive heart disease and osteoarthritis of the knees. She has completed medical supervised weight loss. She is looking into the gastric bypass. At height of 5 feet 4.25 inches, her ideal body weight is 144 pounds. Highest weight 256 pounds. Her body mass index was 43.7. Today she comes in 238 pounds. She is 95 pounds overweight. A second-generation bariatric consent form was described in detail including the possibility of protein malnutrition, leaks, gastrojejunal stricture, venous thrombosis, need for further surgery for which she demonstrated understanding. Benefits and risks of the procedure were described at length. Informed consent was obtained. DESCRIPTION: The patient was brought into the operating room theater. She was placed supine. She had received heparin subcutaneously for DVT prophylaxis. Additionally Peridex oral solution as an oral decontaminant was placed per anesthesia. After general induction, the abdomen was prepped and draped in standard sterile fashion. Ioban draping was placed along the abdomen. Pelaez catheter was avoided. A robotic da Sari Xi system was prepped and primed. Incisions were proposed at 15 cm from the xiphoid. Proposed port sites were marked with indelible marker along the anterior axillary line bilaterally, mid clavicular line bilaterally with each port marked 10 cm from each other. The robotic stapler port was marked for the right midclavicular line including along the left midclavicular line. A 5 mm 0 degrees laparoscopic trocar entry was performed along the left upper quadrant. The abdomen was insufflated to 15 mmHg pressure, which she tolerated well. Diagnostic laparoscopy demonstrated no injury to bowel, viscera, or mesentery. The liver was consistent with her 2-week protein diet. Presence of fatty liver disease was found. An 8 mm camera port was placed left lateral to the umbilicus at the epigastrium, 15 cm distal to the xiphoid. Next, 12-mm robot stapler port was placed along the right mid abdomen. An 12 mm port was exchanged along the left upper quadrant. An 8 mm port was placed on the left lateral abdominal wall under direct visualization Please note that the ports were placed 18 to 20 cm away from the target anatomy of the stomach. Care was taken to check that each robotic arm was safely away from collision with the bed or the patient. At the epigastrium, a medium sized Jamal liver retractor was placed under direct visualization with the [employer] Operator placed under the right shoulder of the patient. The patient was repositioned in reverse Trendelenburg position at 21-degrees after lowering the bed. The robot was docked over the patient. Using grasper for arm 3, a grasper for arm 1, including vessel sealer for arm 4, the robotic system was docked and primed as described. Instruments were interchanged by the assistant store leader including endoscissors, the needle recycling collections driver, and stapler. I had sat at the console. Next, the transverse mesocolon was reflected into the upper abdomen for the jejunojejunostomy portion of the case. The ligament of Treitz was identified and measured 60 cm antegrade and marked using 3-0 Silk. The jejunum was divided at the 60 cm point using 60-mm white loads above the suture measurement. The biliopancreatic limb was held in place. The Adis limb was measured 100 cm in an antegrade fashion to avoid tension along the proposed gastrojejunal anastomosis. At 100 cm along the anti-mesenteric border of the Adis limb, a jejunojejunostomy was proposed whereby enterotomies were created along the biliopancreatic limb including the Adis limb using a Bovie cautery. A stay suture of 3-0 Slik was placed to align and create the anastomosis. The enterotomies along the anti- mesenteric borders were created followed by unidirectional fire from the patient's right side using 60 mm white loads [employer] technology robotic stapler. The jejunojejunostomy was found to be hemostatic. The enterotomy was closed after horizontal mattress stitch of 3-0 silk used to elevate the enterotomy f ollowed by closure with the robotic stapler blue load. The jejunal limb was temporarily tacked along the left upper quadrant. Attention was now brought to the creation of the gastrojejunostomy. Along the lesser curvature of the stomach, dissection was made along the retrogastric space to allow first firing of the robotic staple. Green loads and blue loads of 60 mm staplers were used to divide the stomach to create the gastric pouch. The patient was then prepared for placement of a Orvil. A 21-mm Orvil was selected for placement by the nurse managed security sales consultant. The Orvil tubing was placed an terior to the staple line of the gastric pouch and brought out through the left inferior lateral port. I re-scrubbed into the case. The robotic arms were temporarily undocked. The Orvil was then carefully and successfully navigated with the help of the nurse managed security sales consultant into the gastric pouch. The sutures were identified and divided. The tubing was from the 21 mm anvil. As the Orvil had been placed, the jejunal limb was brought proximally into the upper abdomen. No torsion was found upon the Adis limb. No tension was identified as the limb was brought along the upper abdomen. The jejunal limb was previously opened using hook cautery. The 21-mm EEA stapler was brought through the left anterior lateral port site from the left side. The EEA stapler was brought through the open jejunal limb and its needle was deployed at the antimesenteric border where the anvil were mated for approximately 1 minute upon firing. The stapler was removed after irrigating the shaft of the instrument with warm normal saline. Donuts were found to be intact and on both sides. The da Sari Xi robot arms were then re-docked. I sat at the console. The open jejunal limb defect was closed using 60 mm blue loads after releasing any tension from the blind jejunal limb. No redundancy was present for jejunal limb. The transverse mesocolon was divided for the adis limb. Reinforcement sutures were placed along the gastrojejunal anastomosis and placed along the 9:00, 12:00 and 3 o'clock position using 3-0 Vicryl. A small sponge thread was cut from the anastomosis. The Manuel and jejunojejunostomy mesenteric defect was closed using 2-0 V LOC, green. I then went to the head of the bed to perform the esophagogastrojejunoscopy and a leak test. An Olympus gastroscope was passed alongthe posterior oropharynx which was unremarkable for any injury to the vocal cords. The scope was passed down to the proximal portion of the pouch, whereby no active bleeding was encountered. Excellent visualization of the gastrojejunostomy anastomosis, including the Adis limb was encountered with endoscopic image obtained. The anastomosis was found to be patent without active bleeding. Residual blood was suctioned from the gastric pouch. The gastrointestinal tract was desufflated. No evidence of intraoperative leak was encountered as the gastric pouch and anastomosis were submerged under normal saline solution. The robot was then undocked. I then went back to the bedside of the patient, whereby with coordinated effort of the assistant store leader, irrigation was aspirated from the upper abdominal cavity. Tisseel was placed circumferentially over the anastomosis of the gastrojejunostomy. The fascial defect of the EEA stapler was closed using Catarino Regalado and 0 Vicryl. All instruments and pneumoperitoneum were evacuated from the abdominal cavity. The port correlating with the EEA stapler device was cleansed with normal saline solution and hydrogen peroxide. The rest of incisions were reapproximated using 4-0 Monocryl in an interrupted subcuticular fashion. Local anesthetic was infiltrated along the skin for postop analgesia. Liquid glue was applied to the skin. OptiFoam dressing was placed along the EEA stapler site. At the end of the procedure, needle, sponge and instrument count had been verified correct by the surgical sales representative. The patient had tolerated the procedure well and was extubated and taken to the postanesthesia unit in stable condition. (Due to shortage supply, 21-mm Orvil used for case)
[2022-03-14] MEDS: ALBUTEROL NEBULIZED 2.5 MG/3 ML INHALATION SCH ×2 (15:38→21:13)
[2022-03-14] MEDS: 0.9% NACL WITH KCL 20 MEQ/L 1,000 ML IV SCH (16:18)
[2022-03-14] MEDS: POTASSIUM CHLORIDE 10 MEQ in WATER FOR INJECTION 1 100ML.BAG IVPB SCH ×3 (16:19→22:04)
[2022-03-14] MEDS: MAGNESIUM SULFATE-D5W PMX 1 GM in DEXTROSE/WATER 1 100ML.BAG IVPB SCH ×2 (16:19→17:28)
[2022-03-14] MEDS: SIMETHICONE 40 MG/0.6 ML DROPS 2,000 MG/30 ML BOTTLE PO SCH (17:25)
[2022-03-14] MEDS: ONDANSETRON 4 MG/2 ML VIAL IVP SCH ×2 (17:26→21:47)
[2022-03-14] MEDS: ACETAMINOPHEN IV (For NPO) 1,000 MG in EMPTY BAG 1 BAG IVPB SCH ×2 (17:26→22:37)
[2022-03-14] MEDS ORDERED: fentaNYL PCA 500 MCG/50 ML BAG IV PRN (20:24)
[2022-03-14 20:47] LABS: Glucose,Whole Blood 136 mg/dL (75-99)
[2022-03-14] MEDS ORDERED: LOSARTAN 50 MG TAB PO SCH (21:00)
[2022-03-14] MEDS: LABETALOL 200 MG TAB PO SCH (21:48)
[2022-03-14] MEDS: HEPARIN SODIUM,PORCINE/PF 5,000 UNIT/0.5 ML SYRINGE SQ SCH (21:49)
[2022-03-14] MEDS: PANTOPRAZOLE 40 MG/10 ML VIAL IV SCH (21:49)
[2022-03-15] MEDS: 0.9% NACL WITH KCL 20 MEQ/L 1,000 ML IV SCH ×2 (01:30→06:18)
[2022-03-15] MEDS: SIMETHICONE 40 MG/0.6 ML DROPS 2,000 MG/30 ML BOTTLE PO SCH ×3 (01:30→11:11)
[2022-03-15] MEDS: POTASSIUM CHLORIDE 10 MEQ in WATER FOR INJECTION 1 100ML.BAG IVPB SCH (02:17)
[2022-03-15] MEDS: INSULIN ASPART (NovoLOG) 100 UNIT/ML VIAL SQ SCH ×3 (02:35→11:52)
[2022-03-15 02:56] LABS: Glucose,Whole Blood 111 mg/dL (75-99)
[2022-03-15 05:28] LABS: Glucose,Whole Blood 103 mg/dL (75-99)
[2022-03-15] MEDS: ONDANSETRON 4 MG/2 ML VIAL IVP SCH ×2 (06:17→11:07)
[2022-03-15] MEDS: ACETAMINOPHEN IV (For NPO) 1,000 MG in EMPTY BAG 1 BAG IVPB SCH ×2 (06:17→11:08)
[2022-03-15] MEDS: LACTATED RINGERS 1,000 ML IV SCH (06:55)
[2022-03-15 07:06] LABS: Glucose,Whole Blood 111 mg/dL (75-99)
[2022-03-15] MEDS: ALBUTEROL NEBULIZED 2.5 MG/3 ML INHALATION SCH ×3 (07:33→16:25)
[2022-03-15] MEDS ORDERED: 0.9% NACL WITH KCL 20 MEQ/L 1,000 ML IV SCH (08:00)
[2022-03-15] MEDS: HEPARIN SODIUM,PORCINE/PF 5,000 UNIT/0.5 ML SYRINGE SQ SCH (08:03)
[2022-03-15] MEDS: PANTOPRAZOLE 40 MG/10 ML VIAL IV SCH (08:26)
[2022-03-15] MEDS: LABETALOL 200 MG TAB PO SCH (08:54)
[2022-03-15 09:26] LABS: Basophils % (A) 0 %; Eosinophils # (A) 0.2 k/uL (0-0.7); Eosinophils % (A) 2 %; HCT 37.2 % (34.0-46.0); HGB 11.9 gm/dL (11.4-16.0); Lymphocytes # (A) 1.7 k/uL (1.0-4.8); Lymphocytes % (A) 15 %; MCH 26.2 pg (25.0-35.0); MCV 82.1 fL (80.0-100.0); Mean Platelet Volume 7.3; Monocytes # (A) 0.5 k/uL (0-1.0); Monocytes % (A) 4 %; Neutrophils # (A) 8.7 k/uL (1.3-7.7); Neutrophils % (A) 78 %; Platelet Count 316 k/uL (150-450); RBC 4.53 m/uL (3.80-5.40); RDW 14.9 % (11.5-15.5); WBC 11.2 k/uL (3.8-10.6)
[2022-03-15 09:50] LABS: Potassium 3.7 mmol/L (3.5-5.1)
[2022-03-15 09:51] LABS: African American GFR (CKD) >90 (>60 ml/min/1.73 sqM); Anion Gap 13 mmol/L; Blood Urea Nitrogen 9 mg/dL (7-17); Calcium 8.2 mg/dL (8.4-10.2); Carbon Dioxide 19 mmol/L (22-30); Chloride 109 mmol/L (98-107); Magnesium 2.3 mg/dL (1.6-2.3); Non-African American GFR(CKD) >90 (>60 ml/min/1.73 sqM); Sodium 141 mmol/L (137-145)
--- NOTE | 2022-03-15 10:11 | P.PN ---
Subjective Progress Note Date: 03/15/22 CHIEF COMPLAINT: Morbid obesity HISTORY OF PRESENT ILLNESS: The patient is a 31-year-old female status post gastric bypass. No reports of nausea or vomiting. She is ambulating wit respiratory therapy. Her pain is well controlled. ROS: No reports of nausea and vomiting. No bowel movements. No fevers or chills. No new chest pain. No productive sputum PHYSICAL EXAM: VITAL SIGNS: Reviewed CONSTITUTIONAL: Well developed and in no acute distress. EYES: Conjuctivae without sclera icterus. Extraocular movements grossly intact. HEAD, EARS, NOSE, THROAT: Moist buccal mucosa. Head is atraumatic, normocephalic. Hears conversational speech. No nasal drainage. RESPIRATORY: Non-labored respirations and equal bilateral excursions. CARDIOVASCULAR: Palpable 2+ radial pulses. ABDOMEN: Incisions intact. MUSCULOSKELETAL: No gross deformity of the lower extremities noted. No clubbing. No cyanosis. SKIN: Good skin turgor. Well perfused. NEUROLOGIC: Cranial nerves II through XII grossly intact. No focal or lateralizing signs. PSYCH: Appropriate affect. Alert and oriented to person, place and time. CLINICAL LABS: Reviewed. Hgb stable STUDIES: Limited upper GI independent review demonstrated no leaks or obstruction. This is my independent interpretation. ASSESSMENT: 1. Morbid obesity 2. Hypokalemia, present on admission PLAN: 1. She is doing well. Anticipated discharge today. 2. Adjustment of medications as she presents with pre-existing hypokalemia 3. Follow up in bariatric center in 3 days. Objective - Vital Signs Vital signs: Vital Signs Temp 98.7 F 03/15/22 07:55 Pulse 98 03/15/22 08:50 Resp 14 03/15/22 07:55 BP 133/86 03/15/22 08:50 Pulse Ox 98 03/15/22 07:55 Intake & Output 03/14/22 03/15/22 03/15/22 18:59 06:59 18:59 Intake Total 1550 1800 Output Total 20 Balance 1530 1800 Weight 108.4 kg Intake: IV 1550 Intake, IV Titration 1800 Amount 0.9% NaCl with KCl 20 Meq 1800 /l 1,000 ml @ 100 mls/hr IV .Q10H GINA Rx#: [id number] Output: Estimated Blood Loss 20 Other: Voiding Method Toilet # Voids 0 3 1 - Labs CBC & Chem 7: 03/15/22 09:05 03/15/22 09:05 Labs: Abnormal Lab Results - Last 24 Hours (Table) 03/14/22 03/14/22 03/14/22 Range/Units 10:48 11:20 14:57 Potassium 3.2 L (3.5-5.1) mmol/L BUN 18 H (7-17) mg/dL POC Glucose (mg/dL) 104 H 156 H (75-99) mg/dL AST 66 H (14-36) U/L ALT 120 H (4-34) U/L 03/14/22 03/15/22 03/15/22 Range/Units 20:46 02:35 05:25 Potassium (3.5-5.1) mmol/L BUN (7-17) mg/dL POC Glucose (mg/dL) 136 H 111 H 103 H (75-99) mg/dL AST (14-36) U/L ALT (4-34) U/L 03/15/22 Range/Units 07:04 Potassium (3.5-5.1) mmol/L BUN (7-17) mg/dL POC Glucose (mg/dL) 111 H (75-99) mg/dL AST (14-36) U/L ALT (4-34) U/L
[2022-03-15 11:31] LABS: Glucose,Whole Blood 106 mg/dL (75-99)
[2022-03-15 16:09] VITALS: BP 133/70; PULSE 82; RESP 16; TEMP 98.3
--- NOTE | 2022-03-15 18:22 | FL ---
SINGLE CONTRAST UPPER GI EXAMINATION: CLINICAL HISTORY: 31-year-old female postbariatric surgery TECHNIQUE: Single contrast exam performed with 35 mL Isovue-370 contrast. Total fluoroscopy time: 1 minute 48 seconds. Total images: 35. FINDINGS: The patient swallowed oral contrast without difficulty or delay. Esophageal peristalsis and motility are within normal limits. There is prompt passage of contrast from the esophagus into the stomach. Some focal outpouching projecting left laterally likely corresponds to a projection of the stomach. C ontrast flows towards the right side of the abdomen before encountering the gastrojejunostomy. Proxim al most jejunum extends slightly more toward the midline before winding back towards the left. There is no evidence of contrast extravasation to suggest leak. Trace posterior free air below the right he midiaphragm. IMPRESSION: No evidence of leak or significant obstruction status post Leida-en-Y gastric bypass. The gastrojejuno stomy and proximal jejunum after the anastomosis is somewhat more along the midline than typically se en. Likely relates to surgical technique. Images available for review. Trace post surgical free air o n the right.
[2022-03-16] MEDS ORDERED: bisacodyL 5 MG TABLET.DR PO PRN (08:00)
--- NOTE | 2022-03-16 10:31 | P.DS ---
Providers Date of admission: 03/14/22 10:07 Expected date of discharge: 03/15/22 Attending physician: Lucy Kimball Primary care physician: Hubert Gan MD Hospital Course: POSTOPERATIVE DIAGNOSES: 1. Morbid obesity due to excess calories 2. Body mass index of 43.7, initial 3. Hypertensive heart disease. 4. Diabetes type 2, non-insulin dependent 5. Polycystic ovarian syndrome 6. Osteoarthritis knees. 7. Gastroesphageal reflux disease. COURSE: Jasmin Gonzáles is a 31-year-old female who comes with lifelong morbid obesity. As a result of her morbid obesity, she has developed diabetes type II, hypertensive heart disease and osteoarthritis of the knees. She has completed medical supervised weight loss. She is looking into the gastric bypass. She underwent medical supervised weight loss including bariatric educational courses. She had a gastric bypass. Upper GI was negative for leaks obstruction. Prior to discharge, she was tolerating diet. DVT prophylaxis including dietary restrictions reviewed in detail. Follow-up in the bariatric center in 2-3 days reviewed. Procedures: OPERATION: 1. Robotic assisted da Sari Xi laparoscopic Adis-en-Y gastric bypass, 100 cm antecolic antegastric Adis limb, with 21 mm EEA. 2. Intraoperative esophagogastrojejunoscopy. ANESTHESIA: GETA and local ESTIMATED BLOOD LOSS: 20 mL SPECIMENS REMOVED: None. COMPLICATIONS: NONE. Operative Findings: 1. Biliopancreatic limb 60 cm 2. Bypass performed using 100 cm adis limb secondary to avoid increased tension at 150 cm. 3. Jejunojejunostomy and Manuel's defects closed using 2-0 V-LOC, green 4. Leak test negative with gastrojejunal anastomosis patent and hemostatic. 5. Reinforcement sutures were placed along the gastrojejunal anastomosis at 9:00 and 3:00 and 12:00. Patient Condition at Discharge: Stable Plan - Discharge Summary Discharge Rx Participant: Yes New Discharge Prescriptions: New Simethicone 40 mg/0.6 ml Drops [Mylicon Drops] 40 mg PO PCHS PRN #30 ml PRN Reason: Gas Acetaminophen Tab [Tylenol Tab] 1,000 mg PO Q6HR PRN #30 tablet PRN Reason: Pain bisacodyL [Dulcolax] 5 mg PO DAILY PRN #10 tab PRN Reason: Constipation Omeprazole [PriLOSEC] 40 mg PO DAILY #30 cap Ondansetron Odt [Zofran Odt] 4 mg PO Q8HR PRN #9 tab PRN Reason: Nausea Continue Labetalol [Trandate] 200 mg PO BID Discontinued Cholecalciferol (Vitamin D3) [Vitamin D3] 5,000 unit PO 1800 Dapagliflozin/Metformin HCl [Xigduo Xr 10 mg-1,000 mg Tab] 1 tab PO DAILY Omeprazole 40 mg PO DAILY PRN PRN Reason: Heartburn Losartan Potassium 100 mg PO HS hydroCHLOROthiazide 25 mg PO HS Multivitamins, Thera [Multivitamin (formulary)] 1 tab PO DAILY Discharge Medication List Labetalol [Trandate] 200 mg PO BID 05/26/21 [History] Acetaminophen Tab [Tylenol Tab] 1,000 mg PO Q6HR PRN #30 tablet 03/15/22 [Rx] Omeprazole [PriLOSEC] 40 mg PO DAILY #30 cap 03/15/22 [Rx] Ondansetron Odt [Zofran Odt] 4 mg PO Q8HR PRN #9 tab 03/15/22 [Rx] Simethicone 40 mg/0.6 ml Drops [Mylicon Drops] 40 mg PO PCHS PRN #30 ml 03/15/22 [Rx] bisacodyL [Dulcolax] 5 mg PO DAILY PRN #10 tab 03/15/22 [Rx] Follow up Appointment(s)/Referral(s): [place], [place] [NON-STAFF] - 03/18/22 9:00 am Patient Instructions/Handouts: *Surgery [facility] - Managing Your Pain After Surgery Without Opioids, Nutrition after Bariatric Surgery (GEN), Adis-en-Y Gastric Bypass (GEN), Deep Vein Thrombosis Prevention (DC) Activity/Diet/Wound Care/Special Instructions: Liquid diet only for 2 weeks until March 28 No lifting over 4 pounds in 4 weeks, April 14February Shower. No soaking in bath tubs, until March 28 Please notify your surgeon if you develop nausea and vomiting including new onset of abdominal pain. Continue to use incentive spirometry to prevent pneumonias. Please continue to ambulate at home to prevent blood clots in legs. Follow-up at the bariatric center. February shower. Dressings to be discontinued by surgeon in the office. Drink 64 oz of fluid daily. Start protein shakes on . Notify bariatric center for temp over 101.0, increased pain, drainage from incisions. No straws or carbonated beverages. Liquid diet only. Sugar content should be less than 6 g to avoid dumping syndrome. Take MOM for constipation. CRUSH, OPEN, OR CUT TABLETS LARGER THAN A SIZE OF A TIC TAC Discharge Disposition: HOME SELF-CARE
== END 2022-03-15 17:08 | disposition home or self-care (01) | DRG 621 ==
LOC: 2ORMAIN 10:07 → 4SSUR 15:18
PROVIDERS: ADMIT Surgery Plastic and Reconstructive Surgery; ATTEND Surgery Plastic and Reconstructive Surgery
PROC: 0DJ08ZZ Inspection of Upper Intestinal Tract, Via Natural or Artificial Opening Endoscopic (ICD-10-PCS; principal; 2022-03-14 11:30)
PROC: 0D164ZA Bypass Stomach to Jejunum, Percutaneous Endoscopic Approach (ICD-10-PCS; principal; 2022-03-14 11:30)
PROC: 8E0W4CZ Robotic Assisted Procedure of Trunk Region, Percutaneous Endoscopic Approach (ICD-10-PCS; principal; 2022-03-14 11:30)
DX: E66.01 Morbid (severe) obesity due to excess calories (principal); I11.9 Hypertensive heart disease without heart failure; E11.9 Type 2 diabetes mellitus without complications; K76.0 Fatty (change of) liver, not elsewhere classified; Z68.41 Body mass index [BMI] 40.0-44.9, adult; E87.6 Hypokalemia; E28.2 Polycystic ovarian syndrome; M17.0 Bilateral primary osteoarthritis of knee; K21.9 Gastro-esophageal reflux disease without esophagitis; Z71.3 Dietary counseling and surveillance; Z79.84 Long term (current) use of oral hypoglycemic drugs; Z79.899 Other long term (current) drug therapy; Z86.16 Personal history of COVID-19; Z87.442 Personal history of urinary calculi; Z80.0 Family history of malignant neoplasm of digestive organs
CPT/HCPCS: 74240; 80051; 80053; 81025; 82310; 82565; 83735; 84100; 84520; 85025; 86850; 86900; 86901

== ENCOUNTER 2022-03-18 23:47 | Observation (INO) | payer MEDICAID ==
[2022-03-19] MEDS ORDERED: MORPHINE SULFATE 4 MG/ML SYRINGE IV STA (00:02)
[2022-03-19] MEDS ORDERED: ONDANSETRON 4 MG/2 ML VIAL IVP STA (00:02)
[2022-03-19] MEDS ORDERED: SODIUM CHLORIDE 0.9% 1,000 ML IV STA (00:02)
[2022-03-19] MEDS ORDERED: SODIUM CHLORIDE 0.9% 2,000 ML IV ONE (00:11)
--- NOTE | 2022-03-19 00:12 | ED ---
Abdominal Pain HPI - General Chief Complaint: Abdominal Pain Stated Complaint: Post-Op Abdominal pain Time Seen by Provider: 03/18/22 23:53 Source: patient, RN notes reviewed Mode of arrival: ambulatory Limitations: no limitations - History of Present Illness Initial Comments: This is a pleasant 31-year-old female who underwent the Leida-en-Y procedure by Dr. Kimball on Monday. Patient states she had a follow-up appointment earlier today and then developed pain which is been there for several hours. She is describing a constant, sharp pain with nausea. Patient denies any fever. No shortness of breath or chest pain. No changes in all movements. Patient was on a clear liquid diet up until earlier today then switched to pudding. Patient states she has had bowel movements since going home. No headache, no fever or chills, no changes in vision or hearing, no sore throat or difficulty with speech, no neck pain, no chest pain or shortness of breath, no nausea, no changes in urination or bowel movements, no numbness or tingling, no extremity pain, no skin rashes or lesions. MD Complaint: abdominal pain - Related Data Home Medications Medication Instructions Recorded Confirmed Labetalol [Trandate] 200 mg PO BID 05/26/21 03/18/22 Previous Rx's Medication Instructions Recorded Acetaminophen Tab [Tylenol Tab] 1,000 mg PO Q6HR PRN #30 tablet 03/15/22 Omeprazole [PriLOSEC] 40 mg PO DAILY #30 cap 03/15/22 Ondansetron Odt [Zofran Odt] 4 mg PO Q8HR PRN #9 tab 03/15/22 Simethicone 40 mg/0.6 ml Drops 40 mg PO PCHS PRN #30 ml 03/15/22 [Mylicon Drops] bisacodyL [Dulcolax] 5 mg PO DAILY PRN #10 tab 03/15/22 Allergies Allergy/AdvReac Type Severity Reaction Status Date / Time No Known Allergies Allergy Verified 03/18/22 23:51 Review of Systems ROS Statement: Those systems with pertinent positive or pertinent negative responses have been documented in the HPI. ROS Other: All systems not noted in ROS Statement are negative. Past Medical History Past Medical History: Diabetes Mellitus, GERD/Reflux, Hypertension Additional Past Medical History / Comment(s): PCOS. OCCASIONAL EXTRA HEART BEAT. History of Any Multi-Drug Resistant Organisms: None Reported Past Surgical History: No Surgical Hx Reported, Bariatric Surgery Additional Past Surgical History / Comment(s): egd. gastric bypass 03-14-22 Past Anesthesia/Blood Transfusion Reactions: No Reported Reaction Additional Past Anesthesia/Blood Transfusion Reaction / Comment(s): NO ANESTHESIA HX. Past Psychological History: No Psychological Hx Reported Smoking Status: Never smoker Past Alcohol Use History: None Reported Past Drug Use History: None Reported - Past Family History Mother Family Medical History: No Reported History General Exam Limitations: no limitations General appearance: in distress Head exam: Present: atraumatic, normocephalic, normal inspection Eye exam: Present: normal appearance, PERRL, EOMI. Absent: scleral icterus, conjunctival injection, periorbital swelling ENT exam: Present: normal exam, normal oropharynx, mucous membranes dry, mucous membranes moist, TM's normal bilaterally Neck exam: Present: normal inspection, full ROM. Absent: tenderness, meningismus, lymphadenopathy Respiratory exam: Present: normal lung sounds bilaterally. Absent: respiratory distress, wheezes, rales, rhonchi, stridor, chest wall tenderness, accessory muscle use Cardiovascular Exam: Present: regular rate, normal rhythm, normal heart sounds. Absent: systolic murmur, diastolic murmur, rubs, gallop, clicks GI/Abdominal exam: Present: soft, tenderness (Patient has tenderness in the left upper quadrant with guarding.), diminished bowel sounds. Absent: distended, guarding, rebound, rigid Extremities exam: Present: normal inspection, full ROM, normal capillary refill. Absent: tenderness, pedal edema, joint swelling, calf tenderness Back exam: Present: normal inspection Neurological exam: Present: alert, oriented X3, CN II-XII intact Psychiatric exam: Present: normal affect, normal mood Skin exam: Present: warm, dry, intact, normal color. Absent: rash Course Vital Signs 03/18/22 23:50 Temperature 98.3 F Pulse Rate 90 Respiratory 18 Rate Blood Pressure 153/98 O2 Sat by Pulse 99 Oximetry - Consultations Consultation #1: Case was discussed in detail with Dr. Kimball who recommends observation for the patient. Medical Decision Making - Medical Decision Making She presents with left upper quadrant abdominal pain. Patient had Leida-en-Y procedure on Monday. I did touch base with Dr. Adams who suggested a 2 L fluid bolus, laboratory investigations, and CT scan abdomen and pelvis with bariatric protocol. Case discussed with the patient's surgeon who agreed to admit the patient for observation. Patient was reevaluated. Patient still has pain. Pain medications ordered. Maintenance fluids ordered. The case was discussed in detail with ED attending physician. Presentation, findings, treatment plan discussed in detail. Animal Biologist Dr. Heath - Lab Data Result diagrams: 03/19/22 00:35 03/19/22 00:35 Lab Results 03/19/22 03/19/22 03/19/22 Range/Units 00:35 00:35 01:32 WBC 10.2 (3.8-10.6) k/uL RBC 4.56 (3.80-5.40) m/uL Hgb 11.9 (11.4-16.0) gm/dL Hct 36.5 (34.0-46.0) % MCV 80.1 (80.0-100.0) fL MCH 26.2 (25.0-35.0) pg MCHC 32.7 (31.0-37.0) g/dL RDW 15.0 (11.5-15.5) % Plt Count 388 (150-450) k/uL MPV 7.5 Neutrophils % 71 % Lymphocytes % 20 % Monocytes % 4 % Eosinophils % 3 % Basophils % 1 % Neutrophils # 7.3 (1.3-7.7) k/uL Lymphocytes # 2.1 (1.0-4.8) k/uL Monocytes # 0.4 (0-1.0) k/uL Eosinophils # 0.3 (0-0.7) k/uL Basophils # 0.1 (0-0.2) k/uL Sodium 139 (137-145) mmol/L Potassium 3.7 (3.5-5.1) mmol/L Chloride 109 H (98-107) mmol/L Carbon Dioxide 18 L (22-30) mmol/L Anion Gap 12 mmol/L BUN 11 (7-17) mg/dL Creatinine 0.54 (0.52-1.04) mg/dL Est GFR (CKD-EPI)AfAm >90 (>60 ml/min/1.73 sqM) Est GFR (CKD-EPI)NonAf >90 (>60 ml/min/1.73 sqM) Glucose 87 (74-99) mg/dL Calcium 9.1 (8.4-10.2) mg/dL Total Bilirubin 0.7 (0.2-1.3) mg/dL AST 31 (14-36) U/L ALT 45 H (4-34) U/L Alkaline Phosphatase 109 (38-126) U/L Total Protein 7.0 (6.3-8.2) g/dL Albumin 4.1 (3.5-5.0) g/dL Lipase 81 (23-300) U/L Urine Color Yellow Urine Appearance Clear (Clear) Urine pH 6.0 (5.0-8.0) Ur Specific [place] 1.013 (1.001-1.035) Urine Protein Negative (Negative) Urine Glucose (UA) Negative (Negative) Urine Ketones 3+ H (Negative) Urine Blood Negative (Negative) Urine Nitrite Negative (Negative) Urine Bilirubin Negative (Negative) Urine Urobilinogen <2.0 (<2.0) mg/dL Ur Leukocyte Esterase Negative (Negative) Urine HCG, Qual (Not Detectd) 03/19/22 Range/Units 01:32 WBC (3.8-10.6) k/uL RBC (3.80-5.40) m/uL Hgb (11.4-16.0) gm/dL Hct (34.0-46.0) % MCV (80.0-100.0) fL MCH (25.0-35.0) pg MCHC (31.0-37.0) g/dL RDW (11.5-15.5) % Plt Count (150-450) k/uL MPV Neutrophils % % Lymphocytes % % Monocytes % % Eosinophils % % Basophils % % Neutrophils # (1.3-7.7) k/uL Lymphocytes # (1.0-4.8) k/uL Monocytes # (0-1.0) k/uL Eosinophils # (0-0.7) k/uL Basophils # (0-0.2) k/uL Sodium (137-145) mmol/L Potassium (3.5-5.1) mmol/L Chloride (98-107) mmol/L Carbon Dioxide (22-30) mmol/L Anion Gap mmol/L BUN (7-17) mg/dL Creatinine (0.52-1.04) mg/dL Est GFR (CKD-EPI)AfAm (>60 ml/min/1.73 sqM) Est GFR (CKD-EPI)NonAf (>60 ml/min/1.73 sqM) Glucose (74-99) mg/dL Calcium (8.4-10.2) mg/dL Total Bilirubin (0.2-1.3) mg/dL AST (14-36) U/L ALT (4-34) U/L Alkaline Phosphatase (38-126) U/L Total Protein (6.3-8.2) g/dL Albumin (3.5-5.0) g/dL Lipase (23-300) U/L Urine Color Urine Appearance (Clear) Urine pH (5.0-8.0) Ur Specific [place] (1.001-1.035) Urine Protein (Negative) Urine Glucose (UA) (Negative) Urine Ketones (Negative) Urine Blood (Negative) Urine Nitrite (Negative) Urine Bilirubin (Negative) Urine Urobilinogen (<2.0) mg/dL Ur Leukocyte Esterase (Negative) Urine HCG, Qual Not Detected (Not Detectd) Disposition Clinical Impression: Abdominal pain, Postoperative pain Narrative: Postoperative abdominal pain Disposition: ADMITTED IP TO THIS HOSP Condition: Good Is patient prescribed a controlled substance at d/c from ED?: No Referrals: Hubert Gan MD [Primary Care Provider] - 1-2 days Time of Disposition: 03:29
[2022-03-19] MEDS: IOPAMIDOL CONTRAST (ORAL USE) VIAL PO PRN (00:47)
[2022-03-19 01:04] LABS: ALT 45 U/L (4-34); AST 31 U/L (14-36); African American GFR (CKD) >90 (>60 ml/min/1.73 sqM); Albumin 4.1 g/dL (3.5-5.0); Alkaline Phosphatase 109 U/L (38-126); Anion Gap 12 mmol/L; Blood Urea Nitrogen 11 mg/dL (7-17); Calcium 9.1 mg/dL (8.4-10.2); Carbon Dioxide 18 mmol/L (22-30); Chloride 109 mmol/L (98-107); Glucose 87 mg/dL (74-99); Lipase 81 U/L (23-300); Non-African American GFR(CKD) >90 (>60 ml/min/1.73 sqM); Potassium 3.7 mmol/L (3.5-5.1); Sodium 139 mmol/L (137-145); Total Bilirubin 0.7 mg/dL (0.2-1.3)
[2022-03-19 01:05] LABS: Basophils # (A) 0.1 k/uL (0-0.2); Basophils % (A) 1 %; Eosinophils # (A) 0.3 k/uL (0-0.7); Eosinophils % (A) 3 %; HCT 36.5 % (34.0-46.0); HGB 11.9 gm/dL (11.4-16.0); Lymphocytes # (A) 2.1 k/uL (1.0-4.8); Lymphocytes % (A) 20 %; MCH 26.2 pg (25.0-35.0); MCHC 32.7 g/dL (31.0-37.0); MCV 80.1 fL (80.0-100.0); Mean Platelet Volume 7.5; Monocytes # (A) 0.4 k/uL (0-1.0); Monocytes % (A) 4 %; Neutrophils # (A) 7.3 k/uL (1.3-7.7); Neutrophils % (A) 71 %; Platelet Count 388 k/uL (150-450); RBC 4.56 m/uL (3.80-5.40); WBC 10.2 k/uL (3.8-10.6)
[2022-03-19 01:51] LABS: Appearance,Urine Clear (Clear); Bilirubin,Urine Negative (Negative); Blood,Urine Negative (Negative); Color,Urine Yellow; Glucose,Urine (UA) Negative (Negative); Ketones,Urine 3+ (Negative); Leukocyte Esterase,Urine Negative (Negative); Nitrite,Urine Negative (Negative); Protein,Urine Negative (Negative); Specific Gravity,Urine 1.013 (1.001-1.035); Urobilinogen,Urine <2.0 mg/dL (<2.0)
--- NOTE | 2022-03-19 03:12 | CT ---
EXAMINATION TYPE: CT abdomen pelvis w con DATE OF EXAM: 03/19/2022 COMPARISON: 01/21/2019 HISTORY: LUQ pain. Pt. had gatric bypass surgery on 03-14-22. prior on PACS. CT DLP: 1725.6 mGycm Automated exposure control for dose reduction was used. CONTRAST: Performed with IV Contrast, patient injected with 100ml mL of Isovue 300. Images obtained from the diaphragm to the floor the pelvis with IV contrast There is small left pleural effusion. There is gastric bariatric surgery. Liver and spleen are intact . There is no pancreatic mass. Gallbladder is intact. The bile ducts are not dilated. Gallbladder is borderline dilated and measures 5 cm. There is no adrenal mass. Kidneys show satisfactory contrast opacification. There is no hydronephrosi s. There are 3 mm calculi in the lateral left kidney. There is no retroperitoneal adenopathy. Ureters are not dilated. Bladder distends smoothly. There is mild low-density free fluid in the pelvis. Uterus is anteverted. No pelvic mass seen. Append ix is normal size. There are multiple small appendicoliths. There is small amount of fluid in the left paracolic gutter. There are some mildly dilated small karoline l loops in the left mid abdomen. There are some sigmoid diverticula. No definite diverticulitis. Ther e are multiple surgical clips in the left mid abdomen from small bowel surgery. There is mildly dilat ed several loops of small bowel measuring up to 3 cm. The lumbar spine is intact. Bony pelvis is intact. Hip joints are intact. IMPRESSION: There is mild abdominal ascites. Appendicoliths are present but no definite sign of appendicitis. Bariatric surgery. Mildly dilated small bowel at the site of the small bowel surgery. Partial small bowel obstruction is possible. Abnormalities appear new compared to old exam. There is clearing of the right-sided renal obstruction compared to old exam.
[2022-03-19] MEDS ORDERED: MORPHINE SULFATE 4 MG/ML SYRINGE IV PRN (03:26)
[2022-03-19] MEDS ORDERED: ONDANSETRON 4 MG/2 ML VIAL IVP PRN (03:26)
[2022-03-19] MEDS ORDERED: NALOXONE 0.4 MG/ML 1 ML VIAL IV PRN ×2 (03:26→17:08)
[2022-03-19] MEDS: SODIUM CHLORIDE 0.9% 1,000 ML IV SCH ×3 (03:41→18:19)
[2022-03-19] MEDS ORDERED: KETOROLAC 15 MG/ML 1 ML VIAL IVP SCH (06:00)
[2022-03-19] MEDS ORDERED: PANTOPRAZOLE 40 MG/10 ML VIAL IVP SCH (11:15)
[2022-03-19] MEDS ORDERED: SCOPOLAMINE 1 MG/72 HR PATCH TRANSDERM STA (11:34)
[2022-03-19] MEDS ORDERED: PANTOPRAZOLE 40 MG TABLET PO STA (11:35)
[2022-03-19] MEDS: ACETAMINOPHEN IV (For NPO) 1,000 MG in EMPTY BAG 1 BAG IVPB SCH ×2 (12:23→18:13)
[2022-03-19] MEDS ORDERED: ACETAMINOPHEN IV (For NPO) 1,000 MG in EMPTY BAG 1 BAG IVPB SCH (14:15)
[2022-03-19] MEDS ORDERED: SIMETHICONE 40 MG/0.6 ML DROPS 2,000 MG/30 ML BOTTLE PO PRN (14:16)
[2022-03-19] MEDS ORDERED: HYDROmorphone 1 MG/ML 1 ML SYRINGE IVP PRN (14:16)
--- NOTE | 2022-03-19 14:16 | P.GSHP ---
History of Present Illness H&P Date: 03/19/22 CHIEF COMPLAINT: Abdominal pain HISTORY OF PRESENT ILLNESS: Jasmin Gonzáles is a 31-year-old female status post gastric bypass 03/14/2022. Patientis seen in the office yesterday morning and was doing well. She reports going home and increasing her diet to high carbohydrate meal cream of wheat was cause epigastric abdominal pain. As a result she developed nausea. She reports the pain progressed until midnight and she presented emergency room as a result. She is passing flatus. She is having bowel movements. She reports she is taking her omeprazole daily. PAST MEDICAL HISTORY: 1. Morbid obesity due to excess calories 2. Body mass index of 43.7, initial 3. Hypertensive heart disease. 4. Diabetes type 2, non-insulin dependent 5. Polycystic ovarian syndrome 6. Osteoarthritis knees. 7. Gastroesphageal reflux disease. PAST SURGICAL HISTORY: Reviewed HOME MEDICATIONS: Reviewed ALLERGIES: Reviewed SOCIAL HISTORY: No past tobacco use. No food allergies. FAMILY HISTORY: No family history of ulcerative colitis disease or Crohn's disease. Family history of morbid obesity. No lupus in the family. Her mother has troubles with weight. She has no family history of esophageal or stomach cancer except pancreatic cancer in grandmother on mother's side. REVIEW OF ORGAN SYSTEMS: CONSTITUTIONAL: At height of 5 feet 4.25 inches, her ideal body weight is 144 pounds. She comes in 256 pounds, her highest weight. Her body mass index is 43.7. She is 112 pounds overweight. HEENT: Denies any active troubles with vision or hearing. No reports of dysphagia ENDOCRINE: Has diabetes. No hypothyroidism. CARDIOVASCULAR: No past reports of palpitations or heart attacks or chest pain. Has hypertensive heart disease. She has hypertension for many years. RESPIRATORY: Has daytime somnolence. Has asthma. Has chronic obstructive pulmonary disease. GASTROINTESTINAL: Recent gastric bypass. GENITOURINARY: Denies bladder urgency. No recent blood in urine. She reports kidney stones. MUSCULOSKELETAL: Has lower back pain and joint pain. Has osteoarthritis of the knees. She has knee pain. NEURO: No headaches. No seizure disorders. Has neuropathy. PSYCH: Denies depression. No suicidal ideation. RHEUMATOLOGIC: No lupus. No rheumatoid arthritis. HEMATOLOGIC: Denies any abnormal bleeding or bruising. Denies past history of DVTs. SKIN: No rash. No skin cancer. PHYSICAL EXAM: VITAL SIGNS: Reviewed GENERAL: Well-developed in no acute distress. HEENT: No scleral icterus. Extraocular movements grossly intact. Hears conversational speech. No nasal drainage. NECK: Supple without lymphadenopathy. CHEST: Nonlabored respirations with equal bilateral excursions. CARDIOVASCULAR: Regular rate. Distal 2+ pulses. ABDOMEN: Obese, soft. Mild tenderness epigastrium. No infection or cellulitis of incisions. MUSCULOSKELETAL: No clubbing, cyanosis. NEURO: No focal or lateralizing signs. Cranial nerves 2 through 12 grossly within normal limits. PSYCH: Appropriate affect. Alert and oriented to person, place and time. SKIN: Good skin turgor. Well perfused. STUDIES: CT of the abdomen and pelvis in the polyp reviewed demonstrating no free air or perforation. No signs of leak or obstruction. Findings were consistent with ileus versus bowel obstruction as patient clinically is passing flatus and having bowel movements. This is my independent interpretation. LABS: Reviewed. No leukocytosis. Hemoglobin normal. ASSESSMENT: 1. Epigastric abdominal pain with nausea 2. Body mass index of 43.7, initial 3. Hypertensive heart disease. 4. Diabetes type 2, non-insulin dependent 5. Polycystic ovarian syndrome 6. Osteoarthritis knees. 7. Gastroesphageal reflux disease. 8. Morbid obesity due to excess calories 9. Dietary surveillance and counseling PLAN: 1. Medications adjusted from the emergency room including discontinuing Toradol, morphine that increases risk for ileus. 2. IV fluid hydration which bariatric full liquid diet 3. Dietary education including nutrition food labels reviewed. High carbohydrate high sugar foods will cause abdominal cramping abdominal pain. 4. Protonix twice a day. 5. Discharge once tolerating diet 6. Scopolamine patch for nausea Past Medical History Past Medical History: Diabetes Mellitus, GERD/Reflux, Hypertension Additional Past Medical History / Comment(s): PCOS. OCCASIONAL EXTRA HEART BEAT. History of Any Multi-Drug Resistant Organisms: None Reported Past Surgical History: No Surgical Hx Reported, Bariatric Surgery Additional Past Surgical History / Comment(s): egd. gastric bypass 03-14-22 Past Anesthesia/Blood Transfusion Reactions: No Reported Reaction Additional Past Anesthesia/Blood Transfusion Reaction / Comment(s): NO ANESTHESIA HX. Past Psychological History: No Psychological Hx Reported Smoking Status: Never smoker Past Alcohol Use History: None Reported Past Drug Use History: None Reported - Past Family History Mother Family Medical History: No Reported History Medications and Allergies Home Medications Medication Instructions Recorded Confirmed Type Labetalol [Trandate] 200 mg PO BID 05/26/21 03/19/22 History Acetaminophen Tab [Tylenol Tab] 1,000 mg PO Q6HR PRN #30 tablet 03/15/22 03/19/22 Rx Omeprazole [PriLOSEC] 40 mg PO DAILY #30 cap 03/15/22 03/19/22 Rx Ondansetron Odt [Zofran Odt] 4 mg PO Q8HR PRN #9 tab 03/15/22 03/19/22 Rx Simethicone 40 mg/0.6 ml Drops 40 mg PO PCHS PRN #30 ml 03/15/22 03/19/22 Rx [Mylicon Drops] bisacodyL [Dulcolax] 5 mg PO DAILY PRN #10 tab 03/15/22 03/19/22 Rx Allergies Allergy/AdvReac Type Severity Reaction Status Date / Time No Known Allergies Allergy Verified 03/19/22 11:46 Surgical - Exam Vital Signs Temp Pulse Resp BP Pulse Ox 98.3 F 90 18 153/98 99 03/18/22 23:50 03/18/22 23:50 03/18/22 23:50 03/18/22 23:50 03/18/22 23:50 Results - Labs 03/19/22 00:35 03/19/22 00:35 Abnormal Lab Results - Last 24 Hours (Table) 03/19/22 03/19/22 Range/Units 00:35 01:32 Chloride 109 H (98-107) mmol/L Carbon Dioxide 18 L (22-30) mmol/L ALT 45 H (4-34) U/L Urine Ketones 3+ H (Negative) Diabetes panel 03/19/22 Range/Units 00:35 Sodium 139 (137-145) mmol/L Potassium 3.7 (3.5-5.1) mmol/L Chloride 109 H (98-107) mmol/L Carbon Dioxide 18 L (22-30) mmol/L BUN 11 (7-17) mg/dL Creatinine 0.54 (0.52-1.04) mg/dL Glucose 87 (74-99) mg/dL Calcium 9.1 (8.4-10.2) mg/dL AST 31 (14-36) U/L ALT 45 H (4-34) U/L Alkaline Phosphatase 109 (38-126) U/L Total Protein 7.0 (6.3-8.2) g/dL Albumin 4.1 (3.5-5.0) g/dL Calcium panel 03/19/22 Range/Units 00:35 Calcium 9.1 (8.4-10.2) mg/dL Albumin 4.1 (3.5-5.0) g/dL Pituitary panel 03/19/22 Range/Units 00:35 Sodium 139 (137-145) mmol/L Potassium 3.7 (3.5-5.1) mmol/L Chloride 109 H (98-107) mmol/L Carbon Dioxide 18 L (22-30) mmol/L BUN 11 (7-17) mg/dL Creatinine 0.54 (0.52-1.04) mg/dL Glucose 87 (74-99) mg/dL Calcium 9.1 (8.4-10.2) mg/dL Adrenal panel 03/19/22 Range/Units 00:35 Sodium 139 (137-145) mmol/L Potassium 3.7 (3.5-5.1) mmol/L Chloride 109 H (98-107) mmol/L Carbon Dioxide 18 L (22-30) mmol/L BUN 11 (7-17) mg/dL Creatinine 0.54 (0.52-1.04) mg/dL Glucose 87 (74-99) mg/dL Calcium 9.1 (8.4-10.2) mg/dL Total Bilirubin 0.7 (0.2-1.3) mg/dL AST 31 (14-36) U/L ALT 45 H (4-34) U/L Alkaline Phosphatase 109 (38-126) U/L Total Protein 7.0 (6.3-8.2) g/dL Albumin 4.1 (3.5-5.0) g/dL
[2022-03-19] MEDS ORDERED: fentaNYL PCA 500 MCG/50 ML BAG IV PRN (18:00)
[2022-03-19] MEDS ORDERED: MAG HYDROX/AL HYDROX/SIMETH 30 ML, HYOSCYAMINE ELIXIR 10 ML, LIDOCAINE VISCOUS 2% 10 ML PO ONE ×3 (18:00)
[2022-03-19] MEDS: ONDANSETRON 4 MG/2 ML VIAL IVP SCH (18:14)
[2022-03-19] MEDS: PANTOPRAZOLE 40 MG/10 ML VIAL IVP SCH (20:26)
[2022-03-19] MEDS: LABETALOL 200 MG TAB PO SCH (20:26)
[2022-03-20] MEDS: ONDANSETRON 4 MG/2 ML VIAL IVP SCH ×3 (00:01→13:48)
[2022-03-20] MEDS: SODIUM CHLORIDE 0.9% 1,000 ML IV SCH ×2 (05:31→09:13)
[2022-03-20] MEDS: ACETAMINOPHEN IV (For NPO) 1,000 MG in EMPTY BAG 1 BAG IVPB SCH ×2 (05:57)
[2022-03-20] MEDS ORDERED: PANTOPRAZOLE 40 MG TABLET PO SCH (07:30)
[2022-03-20 07:38] VITALS: BP 126/86; PULSE 73; RESP 15; TEMP 97.6
[2022-03-20] MEDS: LABETALOL 200 MG TAB PO SCH (09:12)
[2022-03-20] MEDS: PANTOPRAZOLE 40 MG/10 ML VIAL IVP SCH (09:13)
[2022-03-20 12:14] LABS: Basophils % (A) 1 %; Eosinophils # (A) 0.2 k/uL (0-0.7); Eosinophils % (A) 3 %; HCT 31.9 % (34.0-46.0); HGB 11.3 gm/dL (11.4-16.0); Lymphocytes # (A) 1.8 k/uL (1.0-4.8); Lymphocytes % (A) 28 %; MCH 28.4 pg (25.0-35.0); MCHC 35.6 g/dL (31.0-37.0); MCV 79.9 fL (80.0-100.0); Monocytes # (A) 0.4 k/uL (0-1.0); Monocytes % (A) 6 %; Neutrophils # (A) 3.9 k/uL (1.3-7.7); Neutrophils % (A) 61 %; Platelet Count 359 k/uL (150-450); RBC 3.99 m/uL (3.80-5.40); RDW 15.8 % (11.5-15.5); WBC 6.3 k/uL (3.8-10.6)
[2022-03-20 12:17] LABS: African American GFR (CKD) >90 (>60 ml/min/1.73 sqM); Anion Gap 10 mmol/L; Blood Urea Nitrogen 8 mg/dL (7-17); Calcium 8.4 mg/dL (8.4-10.2); Carbon Dioxide 14 mmol/L (22-30); Chloride 115 mmol/L (98-107); Glucose 74 mg/dL (74-99); Non-African American GFR(CKD) >90 (>60 ml/min/1.73 sqM); Sodium 139 mmol/L (137-145)
[2022-03-20 12:25] LABS: Potassium 4.6 mmol/L (3.5-5.1)
--- NOTE | 2022-03-20 14:04 | P.DS ---
Providers Date of admission: 03/19/22 03:27 Expected date of discharge: 03/20/22 Attending physician: Lucy Kimball Primary care physician: Hubert Gan MD - Discharge Diagnosis(es) (1) Dumping syndrome Current Visit: Yes Status: Acute Hospital Course: DISCHARGE DIAGNOSES: 1. 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 Epigastric abdominal pain with nausea 3. Hypertensive heart disease. 4. Polycystic ovarian syndrome 5. Osteoarthritis knees. 6. Gastroesphageal reflux disease. 7. Morbid obesity due to excess calories, Body mass index of 43.7, initial 8. Status post gastric bypass 9. Dietary surveillance and counseling HISTORY OF PRESENT ILLNESS: Jasmin Gonzáles is a 31-year-old female status post gastric bypass 03/14/2022. She was doing well including day prior to admission to the hospital until she had high carbohydrate food of such as cream of wheat which cause dumping syndrome. Patient had continued abdominal pain. She presented to the emergency room. IV fluid hydration was performed including combination of GI cocktail, Protonix and trial of diet. Patient pain had resolved after scopolamine patch for GI cocktail and Protonix. She was stable for discharge. Bariatric discharge instructions include review of nutrition labels and selecting low carbohydrate foods of 6 g and lower advised. Avoiding textured foods such as cream of wheat/small grain texture also reviewed. PHYSICAL EXAM: VITAL SIGNS: Reviewed GENERAL: Well-developed in no acute distress. HEENT: No scleral icterus. Extraocular movements grossly intact. Hears conversational speech. No nasal drainage. NECK: Supple without lymphadenopathy. CHEST: Nonlabored respirations with equal bilateral excursions. CARDIOVASCULAR: Regular rate. Distal 2+ pulses. ABDOMEN: Obese, soft. No peritonitis. Nontender. MUSCULOSKELETAL: No clubbing, cyanosis. NEURO: No focal or lateralizing signs. Cranial nerves 2 through 12 grossly with in normal limits. PSYCH: Appropriate affect. Alert and oriented to person, place and time. SKIN: Good skin turgor. Well perfused. LABS: Reviewed. WBC normal. Vital Signs Temp 97.6 F 03/20/22 07:00 Pulse 73 03/20/22 07:00 Resp 15 03/20/22 07:00 BP 126/86 03/20/22 07:00 Pulse Ox 99 03/20/22 07:00 Intake & Output 05/03/20/22 03/20/22 18:59 06:59 18:59 Intake Total 90 Balance 90 Intake: Oral 90 Other: Voiding Method Toilet # Voids 1 1 Laboratory Last Values WBC 6.3 k/uL (3.8-10.6) 03/20/22 11:15 RBC 3.99 m/uL (3.80-5.40) 03/20/22 11:15 Hgb 11.3 gm/dL (11.4-16.0) L 03/20/22 11:15 Hct 31.9 % (34.0-46.0) L 03/20/22 11:15 MCV 79.9 fL (80.0-100.0) L 03/20/22 11:15 MCH 28.4 pg (25.0-35.0) 03/20/22 11:15 MCHC 35.6 g/dL (31.0-37.0) 03/20/22 11:15 RDW 15.8 % (11.5-15.5) H 03/20/22 11:15 Plt Count 359 k/uL (150-450) 03/20/22 11:15 MPV 8.0 03/20/22 11:15 Neutrophils % 61 % 03/20/22 11:15 Lymphocytes % 28 % 03/20/22 11:15 Monocytes % 6 % 03/20/22 11:15 Eosinophils % 3 % 03/20/22 11:15 Basophils % 1 % 03/20/22 11:15 Neutrophils # 3.9 k/uL (1.3-7.7) 03/20/22 11:15 Lymphocytes # 1.8 k/uL (1.0-4.8) 03/20/22 11:15 Monocytes # 0.4 k/uL (0-1.0) 03/20/22 11:15 Eosinophils # 0.2 k/uL (0-0.7) 03/20/22 11:15 Basophils # 0.0 k/uL (0-0.2) 03/20/22 11:15 Sodium 139 mmol/L (137-145) 03/20/22 11:15 Potassium 4.6 mmol/L (3.5-5.1) 03/20/22 11:15 Chloride 115 mmol/L (98-107) H 03/20/22 11:15 Carbon Dioxide 14 mmol/L (22-30) L 03/20/22 11:15 Anion Gap 10 mmol/L 03/20/22 11:15 BUN 8 mg/dL (7-17) 03/20/22 11:15 Creatinine 0.47 mg/dL (0.52-1.04) L 03/20/22 11:15 Est GFR (CKD-EPI)AfAm >90 (>60 ml/min/1.73 sqM) 03/20/22 11:15 Est GFR (CKD-EPI)NonAf >90 (>60 ml/min/1.73 sqM) 03/20/22 11:15 Glucose 74 mg/dL (74-99) 03/20/22 11:15 Calcium 8.4 mg/dL (8.4-10.2) 03/20/22 11:15 Total Bilirubin 0.7 mg/dL (0.2-1.3) 03/19/22 00:35 AST 31 U/L (14-36) 03/19/22 00:35 ALT 45 U/L (4-34) H 03/19/22 00:35 Alkaline Phosphatase 109 U/L (38-126) 03/19/22 00:35 Total Protein 7.0 g/dL (6.3-8.2) 03/19/22 00:35 Albumin 4.1 g/dL (3.5-5.0) 03/19/22 00:35 Lipase 81 U/L (23-300) 03/19/22 00:35 Urine Color Yellow 03/19/22 01:32 Urine Appearance Clear (Clear) 03/19/22 01:32 Urine pH 6.0 (5.0-8.0) 03/19/22 01:32 Ur Specific [place] 1.013 (1.001-1.035) 03/19/22 01:32 Urine Protein Negative (Negative) 03/19/22 01:32 Urine Glucose (UA) Negative (Negative) 03/19/22 01:32 Urine Ketones 3+ (Negative) H 03/19/22 01:32 Urine Blood Negative (Negative) 03/19/22 01:32 Urine Nitrite Negative (Negative) 03/19/22 01:32 Urine Bilirubin Negative (Negative) 03/19/22 01:32 Urine Urobilinogen <2.0 mg/dL (<2.0) 03/19/22 01:32 Ur Leukocyte Esterase Negative (Negative) 03/19/22 01:32 Urine HCG, Qual Not Detected (Not Detectd) 03/19/22 01:32 Patient Condition at Discharge: Good Plan - Discharge Summary Discharge Rx Participant: No New Discharge Prescriptions: New Omeprazole [PriLOSEC] 40 mg PO DAILY #90 cap Continue Simethicone 40 mg/0.6 ml Drops [Mylicon Drops] 40 mg PO PCHS PRN #30 ml PRN Reason: Gas Acetaminophen Tab [Tylenol] 1,000 mg PO Q6HR PRN #30 tablet PRN Reason: Pain Labetalol [Trandate] 200 mg PO BID bisacodyL [Dulcolax] 5 mg PO DAILY PRN #10 tab PRN Reason: Constipation Omeprazole [PriLOSEC] 40 mg PO DAILY #30 cap Ondansetron Odt [Zofran ODT] 4 mg PO Q8HR PRN #9 tab PRN Reason: Nausea Discharge Medication List Labetalol [Trandate] 200 mg PO BID 05/26/21 [History] Acetaminophen Tab [Tylenol] 1,000 mg PO Q6HR PRN #30 tablet 03/15/22 [Rx] Omeprazole [PriLOSEC] 40 mg PO DAILY #30 cap 03/15/22 [Rx] Ondansetron Odt [Zofran ODT] 4 mg PO Q8HR PRN #9 tab 03/15/22 [Rx] Simethicone 40 mg/0.6 ml Drops [Mylicon Drops] 40 mg PO PCHS PRN #30 ml 03/15/22 [Rx] bisacodyL [Dulcolax] 5 mg PO DAILY PRN #10 tab 03/15/22 [Rx] Omeprazole [PriLOSEC] 40 mg PO DAILY #90 cap 03/20/22 [Rx] Follow up Appointment(s)/Referral(s): Hubert Gan MD [Primary Care Provider] - 1-2 days Bariatric [place], [place] [NON-STAFF] - 03/23/22 (Call for time) Patient Instructions/Handouts: *Surgery [facility] - Scopalamine Patch Instructions, Nutrition after Bariatric Surgery (GEN), Leida-en-Y Gastric Bypass (GEN) Activity/Diet/Wound Care/Special Instructions: Avoid cream of wheat textured food at seeds might cause abdominal pain. Review nutrition labels for low carbohydrates, ideally 6 g per serving to avoid dumping syndrome. Do not remove patch until March 22 Discharge Disposition: HOME SELF-CARE
== END 2022-03-20 14:48 | disposition home or self-care (01) ==
LOC: EC 23:47 → 6NMEDSUR 03-19 03:27
PROVIDERS: ADMIT Surgery Plastic and Reconstructive Surgery; ATTEND Surgery Plastic and Reconstructive Surgery
DX: K91.1 Postgastric surgery syndromes (principal); I11.9 Hypertensive heart disease without heart failure; E28.2 Polycystic ovarian syndrome; M17.0 Bilateral primary osteoarthritis of knee; K21.9 Gastro-esophageal reflux disease without esophagitis; E66.01 Morbid (severe) obesity due to excess calories; Z68.41 Body mass index [BMI] 40.0-44.9, adult; E11.9 Type 2 diabetes mellitus without complications; R10.12 Left upper quadrant pain; Z71.3 Dietary counseling and surveillance; Z98.84 Bariatric surgery status; Z79.84 Long term (current) use of oral hypoglycemic drugs; Z79.899 Other long term (current) drug therapy; Z84.89 Family history of other specified conditions; Z80.0 Family history of malignant neoplasm of digestive organs
CPT/HCPCS: 96376 ×3; 96361 ×3; 96365; 96366 ×2; 96375 ×2; 99285; 36415; 80053; 80048; 83690; 85025 ×2; 81003; 81025; 74177; G0378 ×2; J2270; J2405 ×2; J1170; J0131 ×2; J1885; C9113 ×2; Q9967

== ENCOUNTER → 2022-06-08 | Outpatient (CLI) | payer BC, MEDICAID ==
[2022-06-08 16:22] VITALS: BP 151/96; PULSE 89; TEMP 98.4; BMI 33.5
[2022-06-08 16:29] LABS: INR 1.1 (<1.2); Partial Thromboplastin Time 30.5 sec (22.0-30.0); Prothrombin Time 11.6 sec (9.0-12.0)
--- NOTE | 2022-06-08 17:07 | P.BASOAP ---
Subjective Progress Note Date: 06/08/22 No belly pain. Lost 30 pounds. Goal 30 pounds to 160 pounds. Her protein intake is less than 50 grams. She has troubles with meat. She feels pressure and dysphagia it happens once to twice per week. She may need EGD. Labs and pending. No hernia. Objective - Vital Signs Vital signs: Vital Signs Temp 98.4 F 06/08/22 16:18 Pulse 89 06/08/22 16:18 Resp BP 151/96 06/08/22 16:18 Pulse Ox FiO2 Intake & Output 06/07/22 06/08/22 06/08/22 18:59 06:59 18:59 Weight 89.358 kg - Labs Labs: Abnormal Lab Results - Last 24 Hours (Table) 06/08/22 Range/Units 16:02 APTT 30.5 H (22.0-30.0) sec Assessment/Plan Plan: Date: 06/08/22 Initial Weight: 116.29 kg Initial BMI: 43.7 Current Weight: 89.358 kg Current BMI: 33.5 Type of Surgery: Total Volume in Band: Previous Volume: Volume Removed: Volume Added: Band Size:
[2022-06-08 22:30] LABS: HCT 34.9 % (37.2-46.3); HGB 11.6 g/dL (12.0-15.0); MCH 26.8 pg (27.0-32.0); MCHC 33.2 g/dL (32.0-37.0); MCV 80.6 fL (80.0-97.0); Mean Platelet Volume 10.4 fL (9.5-12.2); NRBC Per 100 WBC 0 /100 WBCS (0.0-0.0); Platelet Count 323 X 10*3/uL (140-440); RBC 4.33 X 10*6/uL (4.10-5.20); RDW 13.6 % (11.5-14.5); WBC 8.84 X 10*3/uL (4.50-10.00)
[2022-06-08 23:16] LABS: Chol/HDL Ratio 3.73 Ratio; Prealbumin 15.2 mg/dL (18.0-42.0); VLDL Calculation 19.34 mg/dL (5.00-40.00)
[2022-06-08 23:35] LABS: % Iron Saturation 8.37 (12.00-45.00); ALT 60 U/L (8-44); AST 33 U/L (13-35); African American GFR (CKD) 140.1 (60.0-200.0); Albumin 4.3 g/dL (3.8-4.9); Alkaline Phosphatase 124 U/L (41-126); BUN/Creat Ratio 23.11 Ratio (12.00-20.00); Blood Urea Nitrogen 14.7 mg/dL (9.0-27.0); Calcium 9.8 mg/dL (8.7-10.3); Chloride 104 mmol/L (96-109); Globulin 2.6 g/dL (1.6-3.3); Glucose 94 mg/dL (70-110); Iron 35 ug/dL (50-170); Non-African American GFR(CKD) 120.8 (60.0-200.0); Phosphorus 3.5 mg/dL (2.4-5.1); Potassium 3.8 mmol/L (3.5-5.5); Sodium 140 mmol/L (135-145); Total Iron Binding Capacity 414 ug/dL (228-460); Total Protein 6.9 g/dL (6.2-8.2)
[2022-06-09 12:13] LABS: Zinc, Serum 74 ug/dL (60-130)
== END | disposition home or self-care (01) ==
LOC: BARWHC3 15:49
PROVIDERS: ATTEND Surgery Plastic and Reconstructive Surgery
DX: E66.01 Morbid (severe) obesity due to excess calories (principal); E89.1 Postprocedural hypoinsulinemia; D50.8 Other iron deficiency anemias; D50.9 Iron deficiency anemia, unspecified; K91.2 Postsurgical malabsorption, not elsewhere classified; E44.0 Moderate protein-calorie malnutrition; E44.1 Mild protein-calorie malnutrition; E45 Retarded development following protein-calorie malnutrition; E46 Unspecified protein-calorie malnutrition; E55.9 Vitamin D deficiency, unspecified; K74.1 Hepatic sclerosis; N19 Unspecified kidney failure; T56.894A Toxic effect of other metals, undetermined, initial encounter; K50.90 Crohn's disease, unspecified, without complications
CPT/HCPCS: 80053; 80061; 82306; 82525; 82607; 82728; 82746; 83036; 83540; 83550; 83735; 83970; 84100; 84134; 84255; 84425; 84443; 84590; 84630; 85027; 85610; 85730; 97803; 99211

== ENCOUNTER 2022-09-28 12:49 | Emergency (ER) | payer BC, MEDICAID ==
[2022-09-28 12:59] VITALS: BP 137/76; PULSE 136; RESP 20; TEMP 97.8
[2022-09-28 13:27] LABS: Basophils # (A) 0.1 k/uL (0-0.2); Basophils % (A) 1 %; Eosinophils # (A) 0.5 k/uL (0-0.7); Eosinophils % (A) 7 %; HCT 46.7 % (34.0-46.0); HGB 16.5 gm/dL (11.4-16.0); Lymphocytes # (A) 2.2 k/uL (1.0-4.8); Lymphocytes % (A) 27 %; MCH 29.9 pg (25.0-35.0); MCHC 35.3 g/dL (31.0-37.0); MCV 84.7 fL (80.0-100.0); Mean Platelet Volume 7.4; Monocytes # (A) 0.6 k/uL (0-1.0); Monocytes % (A) 7 %; Neutrophils # (A) 4.5 k/uL (1.3-7.7); Neutrophils % (A) 56 %; Platelet Count 307 k/uL (150-450); RBC 5.51 m/uL (3.80-5.40); RDW 13.2 % (11.5-15.5)
[2022-09-28 13:38] LABS: ALT 55 U/L (4-34); AST 31 U/L (14-36); African American GFR (CKD) >90 (>60 ml/min/1.73 sqM); Albumin 5.2 g/dL (3.5-5.0); Alkaline Phosphatase 155 U/L (38-126); Anion Gap 12 mmol/L; Blood Urea Nitrogen 17 mg/dL (7-17); Calcium 9.4 mg/dL (8.4-10.2); Carbon Dioxide 24 mmol/L (22-30); Chloride 105 mmol/L (98-107); Glucose 92 mg/dL (74-99); Magnesium 1.9 mg/dL (1.6-2.3); Non-African American GFR(CKD) >90 (>60 ml/min/1.73 sqM); Sodium 141 mmol/L (137-145); Total Bilirubin 0.9 mg/dL (0.2-1.3); Total Protein 8.5 g/dL (6.3-8.2)
[2022-09-28 13:57] LABS: INR 0.9 (<1.2); Partial Thromboplastin Time 31.6 sec (22.0-30.0); Prothrombin Time 10.1 sec (9.0-12.0)
--- NOTE | 2022-09-28 14:00 | XR ---
EXAMINATION TYPE: XR chest 2V DATE OF EXAM: 09/28/2022 COMPARISON: NONE HISTORY: Chest pain TECHNIQUE: Frontal and lateral views of the chest are obtained. FINDINGS: There is no focal air space opacity. No evidence for pneumothorax. No pleural effusion. The cardiac silhouette size is within normal limits. The osseous structures are grossly intact. IMPRESSION: 1. No acute cardiopulmonary process.
== END 2022-09-28 18:10 | disposition left against medical advice (07) ==
LOC: EC 12:49
DX: Z53.21 Procedure and treatment not carried out due to patient leaving prior to being seen by health care provider (principal)
CPT/HCPCS: 36415; 71046; 80053; 83735; 84443; 84484; 85025; 85379; 85610; 85730; 93005; 99499

== ENCOUNTER → 2023-03-16 | Outpatient (CLI) | payer OTHER ==
--- NOTE | 2023-03-16 12:07 | US ---
EXAMINATION TYPE: US renal artery duplex complete DATE OF EXAM: 03/16/2023 COMPARISON: NONE CLINICAL INDICATION: Female, 32 years old with history of R03.0 ELEVATED BLOOD-PRESSURE READING; HTN for years. Controlled with medication MEASUREMENTS: RENAL SIZE: Rt Kidney: 11.2 x 5.9 x 4.4cm Lt Kidney: 12.1 x 5.9 x 4.9cm RESISTANCE INDEX Right: 0.61 Left: 0.56 RA/AO RATIO (< 3.5 ) Right: 1.3 Left: 1.3 RA VELOCITY ( < 180 cm/s) Right: 147.5cm/s Left: 140.5cm/s Follow Up Clerk notes:Limitations due to overlying bowel content. Mid abdominal aorta obscured. Kidneys appear unremarkable as visualized. No evidence of renal artery stenosis as visualized IMPRESSION: Limitations due to overlying bowel gas. No sonographic/Doppler evidence for renal artery stenosis on either side.
== END | disposition home or self-care (01) ==
LOC: RADUSWWP 08:06
PROVIDERS: ATTEND Family Medicine
DX: I10 Essential (primary) hypertension (principal)
CPT/HCPCS: 93975

== ENCOUNTER → 2024-01-02 | Outpatient (CLI) | payer OTHER ==
--- NOTE | 2024-01-02 13:50 | US ---
EXAMINATION TYPE: Transabdominal DATE OF EXAM: 01/02/2024 1:18 PM COMPARISON: NONE CLINICAL INDICATION: Female, 33 years old with history of Z33.1 OBSTETRIC FIRST TRIMESTER; Confirms D ates, pt states no bleeding or cramping EXAM PERFORMED: Transabdominal (TA) EXAM MEASUREMENTS: GESTATIONAL AGE / DATING Physician Established: Not yet established Dates by LMP: (10 weeks/1 days) EDC: 07/29/2024 Dates by First Scan: No previous this is first scan Dates by Current Scan for: (9 weeks/4 days) EDC: 08/02/2024 MATERNAL ANATOMY Uterus: 10.8 x 5.4 x 8.8 cm Right Ovary: 3.1 x 1.9 x 2.6 cm Left Ovary: 3.3 x 2.8 x 3.5 cm Post CDS / Adnexa: wnl Presence of free fluid: No Presence of corpus luteal cyst: Left Ovary= 2.1 x 1.3 x 2.0 cm GESTATION / SURVEY CRL: 2.8 cm (9 weeks/4 days) MSD: wnl Yolk Sac (normal less than 6mm): Not visualized Heart Rate: 0 bpm IUP: No cardiac activity noted on today's scan. Question demise. Date of LMP: 10/23/2024 Beta HcG (if available): Not available at this time Unable to detect heart tones by color doppler or pulsed doppler suggesting demise Results called to Judit GIFFORD at time of exam IMPRESSION: 1. Findings suggest demise. Correlate with serial beta hCG and/or ultrasound.
== END | disposition home or self-care (01) ==
LOC: RADUSWWP 13:02
PROVIDERS: ATTEND Family Medicine
DX: Z33.1 Pregnant state, incidental (principal)
CPT/HCPCS: 76801

== ENCOUNTER → 2024-01-04 | Outpatient (CLI) | payer OTHER | END | disposition home or self-care (01) | LOC: LABWHC1 08:22 | PROVIDERS: ATTEND Physician Assistant Medical | DX: O02.1 Missed abortion (principal); Z3A.00 Weeks of gestation of pregnancy not specified | CPT/HCPCS: 36415; 84702 ==

== ENCOUNTER → 2024-01-10 | Outpatient (CLI) | payer OTHER ==
[2024-01-10 16:55] LABS: Basophils # (A) 0.04 X 10*3/uL (0.00-0.10); Basophils % (A) 0.6 %; Eosinophils # (A) 0.12 X 10*3/uL (0.04-0.35); Eosinophils % (A) 1.7 %; HGB 11.8 g/dL (12.0-15.0); Lymphocytes # (A) 2.52 X 10*3/uL (0.90-5.00); Lymphocytes % (A) 36.7 %; MCH 29.7 pg (27.0-32.0); MCHC 34.7 g/dL (32.0-37.0); MCV 85.6 FL (80.0-97.0); Mean Platelet Volume 9.9 FL (9.5-12.2); Monocytes # (A) 0.42 X 10*3/uL (0.20-1.00); Monocytes % (A) 6.1 %; NRBC Per 100 WBC 0 X 10*3/uL (0.00-0.01); Neutrophils # (A) 3.76 X 10*3/uL (1.80-7.70); Neutrophils % (A) 54.8 %; Platelet Count 276 X 10*3/uL (140-440); RBC 3.97 X 10*6/uL (4.10-5.20); RDW 12.8 % (11.5-14.5); WBC 6.87 X 10*3/uL (4.50-10.00)
== END | disposition home or self-care (01) ==
LOC: LABWHC1 08:03
PROVIDERS: ATTEND Obstetrics & Gynecology
DX: Z01.818 Encounter for other preprocedural examination (principal); O02.1 Missed abortion
CPT/HCPCS: 36415; 85025; 86850; 86900; 86901; 93005

== ENCOUNTER 2024-01-12 09:47 | Day surgery (SDC) | payer OTHER ==
[2024-01-10 10:35] VITALS: BMI 25.7
[~2024-01-12 09:47] MED LIST changes: -ACETAMINOPHEN TAB 500 MG TAB PO PRN; -CHLORHEXIDINE GLUCONATE 15 ML CUP MUCOUS MEM PRN; -DEXAMETHASONE SOD PHOSPHATE 4 MG/ML 1 ML VIAL IV ONE; -GABAPENTIN 300 MG CAP PO PRN; -HEPARIN SODIUM,PORCINE/PF 5,000 UNIT/0.5 ML SYRINGE SQ PRN; -MIDAZOLAM 2 MG/2 ML VIAL IV PRN; -ONDANSETRON 4 MG/2 ML VIAL IVP ONE; -PANTOPRAZOLE 40 MG/10 ML VIAL IVP PRN; +Pre Op ABX Message 1 EACH MISC MISCELLANE ONE; -SCOPOLAMINE 1 MG/72 HR PATCH TRANSDERM PRN
[2024-01-12] MEDS: LACTATED RINGERS 1,000 ML IV SCH (10:06)
[2024-01-12] MEDS: MIDAZOLAM 2 MG/2 ML VIAL IV PRN (10:23)
[2024-01-12] MEDS: DEXAMETHASONE SOD PHOSPHATE 4 MG/ML 1 ML VIAL IV ONE (10:23)
[2024-01-12] MEDS: ONDANSETRON 4 MG/2 ML VIAL IVP ONE (10:23)
[2024-01-12 10:30] VITALS: RESP 16
[2024-01-12] MEDS ORDERED: ACETAMINOPHEN IV (For NPO) 1,000 MG/100 ML VIAL ONE (11:10)
[2024-01-12] MEDS ORDERED: fentaNYL (PF) 50 MCG/ML 2 ML AMP ONE (11:10)
[2024-01-12] MEDS ORDERED: PROPOFOL 10 MG/ML 20 ML VIAL IV ONE (11:10)
[2024-01-12] MEDS ORDERED: MIDAZOLAM 2 MG/2 ML VIAL ONE (11:10)
[2024-01-12] MEDS ORDERED: METOCLOPRAMIDE 5 MG/ML 2 ML VIAL IVP PRN (11:49)
[2024-01-12] MEDS ORDERED: diphenhydrAMINE 50 MG/ML 1 ML VIAL IVP PRN (11:49)
[2024-01-12] MEDS ORDERED: Acetaminophen-Codeine 300-30mg TAB PO PRN ×2 (11:49)
[2024-01-12] MEDS ORDERED: ONDANSETRON 4 MG/2 ML VIAL IVP PRN (11:49)
[2024-01-12] MEDS ORDERED: SIMETHICONE 80 MG CHEWABLE PO PRN (11:49)
[2024-01-12] MEDS ORDERED: ACETAMINOPHEN IV (For NPO) 1,000 MG in EMPTY BAG 1 BAG IVPB ONE (11:49)
[2024-01-12 11:55] VITALS: TEMP 97.8
--- NOTE | 2024-01-12 11:56 | P.OP ---
Date of Procedure: 01/12/24 Preoperative Diagnosis: #1. 9+ weeks missed Postoperative Diagnosis: Same Procedure(s) Performed: #1. Dilation and aspiration curettage Anesthesia: other (General by LMA) Surgeon: Dane Stapleton Estimated Blood Loss (ml): 300 IV fluids (ml): 500 Urine output (ml): 50 Pathology: other (Intrauterine contents) Condition: stable Disposition: PACU Operative Findings: Preoperative pelvic examination demonstrated roughly 8 to 9-week anteverted mobile normal shaped uterus with normal adnexa bilaterally. Intraoperatively, the uterus sounded to approximate Reeder centimeters. A #9 curved aspiration curette was utilized and tissue was clearly seen passing through the tubing on the first 2 passes with no tissue produced thereafter. The typical gritty texture was encountered with sharp curettage. The uterus was appreciably smaller following the procedure. Description of Procedure: The patient was prepped and draped in usual fashion after general anesthesia was administered by the anesthesiologist. A weighted speculum placed in the bladder drained of approximate 50 mL of clear erin urine. The anterior lip of the cervix grasped with a single-tooth tenaculum and the uterus sounded to 11 cm as noted above. Serial dilation was carried out to admitted #9 curved aspiration curette which was placed to the fundus of the uterus and suction applied. After adequate suction had been built, thorough and circumferential aspiration curettage was carried out from the fundus to the cervix with tissue clearly seen passing through the tubing. A second pass was made at which time tissue was a gain clearly seen passing through the tubing. A third pass was made which time no further tissue was noted. The suction curette was set aside in favor of a medium sharp curette which was utilized to thoroughly and circumferentially perform sharp curettage from the fundus to the cervix at which time the typical gritty texture was encountered and no further tissue was produced. 1 last pass was made with the aspiration curette with no tissue produced. All instrumentation was removed. There is a short time in which the patient continue to have a moderate amount of bleeding from the cervix secondary to her uterus being somewhat boggy. Manual massage of the uterus demonstrated uterus to be appreciably smaller and to firm up under pressure. Bleeding then abated. All instrumentation was then removed. There was some minor bleeding at the tenaculum site which was made hemostatic with pressure. Estimated blood loss for the case was approximately 300 mL. There were no complications. All sponge, instrument, and needle counts were correct. The patient tolerated the procedure well proceeded to the recovery room in stable condition.
[2024-01-12] MEDS ORDERED: LACTATED RINGERS 1,000 ML IV SCH (12:00)
[2024-01-12 13:10] VITALS: BP 117/77; PULSE 73
[2024-01-13] MEDS ORDERED: ACETAMINOPHEN TAB 325 MG TAB PO PRN (11:51)
== END 2024-01-12 13:24 | disposition home or self-care (01) ==
LOC: OR 09:47
PROVIDERS: ATTEND Obstetrics & Gynecology
DX: O02.1 Missed abortion (principal); I10 Essential (primary) hypertension; K21.9 Gastro-esophageal reflux disease without esophagitis; Z98.84 Bariatric surgery status; Z79.899 Other long term (current) drug therapy
CPT/HCPCS: 88305; 59820; J2250; J1100; J2405; J3010; J0131; J2704

== ENCOUNTER → 2024-12-20 | Outpatient (CLI) | payer OTHER ==
[~2024-12-20] MED LIST changes: -HYDROmorphone 0.5 MG/0.5 ML SYRINGE IVP PRN; -Pre Op ABX Message 1 EACH MISC MISCELLANE ONE; -SCOPOLAMINE 1 MG/72 HR PATCH TRANSDERM ONE; +SODIUM CHLORIDE 0.9% 250 ML in EMPTY BAG 1 BAG IV PRN
[2024-12-20 12:19] VITALS: BP 140/89; PULSE 92; RESP 16; TEMP 98.2
[2024-12-20] MEDS: SODIUM CHLORIDE 0.9% 500 ML 500 ML in EMPTY BAG 1 BAG IV PRN (12:19)
[2024-12-20] MEDS: IRON SUCROSE 100 MG in SODIUM CHLORIDE 0.9% 100 ML IVPB NR (12:19)
== END ==
LOC: PROCWHC3 11:57
PROVIDERS: ATTEND Family Medicine
DX: E61.1 Iron deficiency (principal)
CPT/HCPCS: 96365; J1756

== ENCOUNTER → 2025-04-11 | Outpatient (CLI) | payer OTHER ==
--- NOTE | 2025-04-11 11:12 | US ---
EXAMINATION TYPE: Transabdominal DATE OF EXAM: 04/11/2025 10:51 AM COMPARISON: 04/04/25 CLINICAL INDICATION: Female, 34 years old with history of O36.8390 MATERN CARE FOR ABNLT FETL HRT RAT E OR RH; Follow up for FHT, early gestation, A1 TECHNIQUE: Transvaginal (TV) and Transabdominal (TA) with grayscale and color Doppler imaging includi ng first trimester . FINDINGS: EXAM MEASUREMENTS: GESTATIONAL AGE / DATING Dates by LMP: 02/20/25 (7 weeks/1 days) EDC: 11/27/25 Dates by First Scan: (6 weeks/1 days) EDC: 11/27/25 Dates by Current Scan for: (7 weeks/0 days) EDC: 11/28/25 MATERNAL ANATOMY Uterus: 10.2 x 5.2 x 6.8cm Right Ovary: 2.6 x 2.1 x 1.9cm Left Ovary: 3.7 x 2.3 x 2.8cm; corpus luteal cyst seen as well as additional cystic area measuring 1. 4 x 1.2 x 1.3cm Post CDS / Adnexa: wnl Presence of free fluid: no Presence of corpus luteal cyst: yes, left ovary Presence of subchorionic bleed: 2.0 x 1.2 x 1.7cm GESTATION / SURVEY CRL: 8.91mm (7 weeks/0 days) Gestational Sac morphology: normal Yolk Sac (normal less than 6mm): 0.24cm Cardiac Activity/Heart Rate: 139 bpm Rhythm: Normal IUP: Viable IUP Date of LMP: 02/20/25 Beta HcG (if available): Not available at this time IMPRESSION: 1. Single intrauterine gestation estimated at 7 weeks 0 days gestation based on the crown-rump length . Cardiac activity measures 139 bpm. [facility], , 04/11/2025 11:09 AM
== END | disposition home or self-care (01) ==
LOC: RADUSWWP 10:09
PROVIDERS: ATTEND Family Medicine
DX: O36.8391 Maternal care for abnormalities of the fetal heart rate or rhythm, unspecified trimester, fetus 1 (principal); Z3A.01 Less than 8 weeks gestation of pregnancy; N83.12 Corpus luteum cyst of left ovary
CPT/HCPCS: 76801; 76817

== ENCOUNTER 2025-05-24 23:55 | Emergency (ER) | payer OTHER ==
--- NOTE | 2025-05-25 01:02 | ED ---
General Adult HPI - General Chief complaint: Vaginal Bleeding Stated complaint: Vaginal Bleeding - 13 wks Time Seen by Provider: 05/25/25 00:31 Source: patient Mode of arrival: ambulatory Limitations: no limitations - History of Present Illness Initial comments: Patient is a pleasant 34 y/o female, currently, 13 weeks , presenting for vaginal spotting x1 day. Pt went to use the bathroom and noted light brown discharge on her toilet paper. She has a history of one prior miscarriage so was concerned and came to the ER for further evaluation. Pt denies and abdominal/pelvic pain, other vaginal discharge, hematuria or dysuria or urinary frequency, nausea, vomiting, chest pain, shortness of breath,, fevers or chills. She is currently following with an applications development consultant and her thus far has been unremarkable. - Related Data Home Medications Medication Instructions Recorded Confirmed Labetalol [Trandate] 100 mg PO BID 05/26/21 03/17/25 Semaglutide [Ozempic] 0.25 mg SQ WEEKLY 12/20/24 03/17/25 metFORMIN HCL 500 mg PO DAILY 12/20/24 03/17/25 Previous Rx's Medication Instructions Recorded Acetaminophen Tab [Tylenol] 1,000 mg PO Q6HR PRN #30 tablet 03/15/22 Cephalexin [Keflex] 500 mg PO Q6HR 7 Days #28 cap 05/25/25 Allergies Allergy/AdvReac Type Severity Reaction Status Date / Time No Known Allergies Allergy Verified 05/25/25 00:08 Review of Systems ROS Statement: Those systems with pertinent positive or pertinent negative responses have been documented in the HPI. ROS Other: All systems not noted in ROS Statement are negative. Constitutional: Denies: fever, chills Respiratory: Denies: dyspnea Cardiovascular: Denies: chest pain Gastrointestinal: Denies: abdominal pain, nausea, vomiting, diarrhea Genitourinary: Reports: discharge (light brown spotting). Denies: dysuria, frequency, hematuria Past Medical History Past Medical History: Diabetes Mellitus, GERD/Reflux, Hypertension Additional Past Medical History / Comment(s): PCOS. OCCASIONAL EXTRA HEART BEAT. History of Any Multi-Drug Resistant Organisms: None Reported Past Surgical History: Bariatric Surgery Additional Past Surgical History / Comment(s): egd. gastric bypass 03-14-22. D and C 03/22 Past Anesthesia/Blood Transfusion Reactions: No Reported Reaction Additional Past Anesthesia/Blood Transfusion Reaction / Comment(s): NO ANESTHESIA HX. Past Psychological History: No Psychological Hx Reported Smoking Status: Former smoker Past Alcohol Use History: None Reported Past Drug Use History: None Reported - Past Family History Mother Family Medical History: No Reported History General Exam - General Exam Comments Initial Comments: PE: CONSTITUTIONAL: No apparent distress, well appearing SKIN: Warm, dry, no jaundice, hives or petechiae EYES: Pupils are equally round, extraocular movements intact without nystagmus, clear conjunctiva, non-icteric sclera HENT: Normocephalic, atraumatic, moist mucus membranes, oropharynx clear without exudates NECK: , Full range of motion, normal appearance PULMONARY: Clear to auscultation without wheezes, rhonchi, or rales, normal excursion, no accessory muscle use and no stridor CARDIOVASCULAR: Regular rate, rhythm, normal S1 and S2. No appreciated murmurs, rubs or gallops. Strong radial pulses with intact distal perfusion. No lower extremity edema GASTROINTESTINAL: Soft, active bowel sounds throughout, non-tender, non- distended, no palpable masses, no rebound or guarding. No hepatosplenomegaly GENITOURINARY: MUSCULOSKELETAL: Extremities have no gross deformity, no edema, redness, or swelling. No calf swelling NEUROLOGIC:_a/o x 3, GCS 15, normal mentation and speech. Moves all extremities x 4 without motor or sensory deficit PSYCHIATRIC:_normal mood and affect, thought process is clear and linear Limitations: no limitations Course Vital Signs 05/25/25 05/25/25 05/25/25 00:08 02:51 04:02 Temperature 98.1 F 97.9 F Pulse Rate 99 85 87 Respiratory 17 19 16 Rate Blood Pressure 177/99 126/98 123/84 O2 Sat by Pulse 98 99 99 Oximetry Medical Decision Making - Medical Decision Making Was pt. sent in by a medical professional or institution (, PA, INTERNET MANAGER, urgent care, hospital, or usp...) When possible be specific @ -No Did you speak to anyone other than the patient for history (EMS, parent, family, police, friend...)? What history was obtained from this source @ -No Did you review nursing and triage notes (agree or disagree)? Why? @ -I reviewed nursing and triage notes of note triage note states that patient presents for dark brown vaginal spotting, patient does present to me with toilet paper she used when she noticed the spotting it is actually light brown Were old charts reviewed (outside hosp., previous admission, EMS record, old EKG, old radiological studies, urgent care reports/EKG's, usp records)? Report findings @ -Medical records reviewed-Ultrasound OB on 04/11/2025 was reviewed, at that time, showed a single live intrauterine gestation at 7 weeks Differential Diagnosis (chest pain, altered mental status, abdominal pain women, abdominal pain men, vaginal bleeding, weakness, fever, dyspnea, syncope, headache, dizziness, GI bleed, back pain, seizure, CVA, palpatations, mental health, musculoskeletal)? @ -Differential Vaginal Bleeding: Spontaneous , threatened , molar , ectopic , bloody show, incompetent cervix, abruptioplacenta, placenta previa, uterine rupture, dysfunctional uterine bleeding, hemorrhage, uterine fibroi ds, this is not meant to be an all-inclusive list. EKG interpreted by me (3pts min.). @ -As above X-rays interpreted by me (1pt min.). @ -None done CT interpreted by me (1pt min.). @ -None done U/S interpreted by me (1pt. min.). @ Personally reviewed ultrasound, did show a single live intrauterine , agree with radiologist interpretation, radiologist also comments there has been an appropriate interval growth since the patient's prior study What testing was considered but not performed or refused? (CT, X-rays, U/S, labs)? Why? @ -None What meds were considered but not given or refused? Why? @ -None Did you discuss the management of the patient with other professionals (professionals i.e. , PA, INTERNET MANAGER, lab, RT, psych nurse, social media assistant, card fixer, teacher, president and chief operating officer, case liner)? Give summary @ -No Was smoking cessation discussed for >3mins.? @ -No Was critical care preformed (if so, how long)? @ -No Were there social determinants of health that impacted care today? How? ( Homelessness, low income, unemployed, alcoholism, drug addiction, transportation, low edu. Level, literacy, decrease access to med. care, retirement, rehab)? @ -No Was there de-escalation of care discussed even if they declined (Discuss DNR or withdrawal of care, Hospice)? @ -No What co-morbidities impacted this encounter? (DM, HTN, Smoking, COPD, CAD, Cancer, CVA, ARF, Chemo, Hep., AIDS, mental health diagnosis, sleep apnea, morbid obesity)? @ -None Was patient admitted / discharged? Hospital course, mention meds given and route, prescriptions, significant lab abnormalities, going to OR and other pertinent info. @Discharged- this is a 34-year-old female, currently 13 weeks presenting today for light brown vaginal spotting x 1 episode today. No pain or fevers, vital stable on arrival. Patient was initially seen and evaluated in the waiting room - did obtain patient's permission to perform her assessment in the waiting room to which she was agreeable. Plan for labs, type and screen, ultrasound OB, UA. Pt agreeable with POC. hCG approximately 54,000, which can be expected at this point in , ultrasound without acute process, shows single live intrauterine gestation 13 weeks, patient is Rh+. Urinalysis shows bacteria without negative nitrates or leukocyte esterase. Patient will be treated for asymptomatic bacteria. Updated pt to findings and discussed plan for discharge, antibiotics, and importance of following up closely with her OB for recheck within 1 week. Discussed importance of remaining on pelvic rest until follow-up with her OB. Pt understanding and comfortable with plan for discharge. In my medical judgment there is currently no evidence of an immediate life- threatening or surgical condition. Discharge is therefore indicated at this mackenzie e. Discharge treatment instructions, follow up instructions, and appropriate emergency department return precautions were discussed with the patient and/or medical decision maker. Patient and/or medical decision maker expressed understanding of and agreed with the treatment plan, follow up instructions, and emergency department return precaution. All patient's and/or medical decision maker's questions were answered. The patient was advised that a small risk still exists that a serious condition could develop and was therefore instructed to return to the ED for any changes in symptoms, persistent symptoms, inability to obtain proper follow-up or for any further concerns. Patient received verbal and written instructions for this condition. Undiagnosed new problem with uncertain prognosis? @ -No Drug Therapy requiring intensive monitoring for toxicity (Heparin, Nitro, Insulin, Cardizem)? @ -No Were any procedures done? @ -No Diagnosis/symptom? @ -vaginal bleeding in pregancy, asymptomatic bacteriuria Acute, or Chronic, or Acute on Chronic? @ -Acute Uncomplicated (without systemic symptoms) or Complicated (systemic symptoms)? @ -Uncomplicated Side effects of treatment? @ -No Exacerbation, Progression, or Severe Exacerbation? @ -No Poses a threat to life or bodily function? How? (Chest pain, [place], [place], pneumonia, PE, COPD, DKA, ARF, appy, cholecystitis, CVA, Diverticulitis, Homicidal, Suicidal, threat to staff... and all critical care pts) @ -No - Lab Data Result diagrams: 05/25/25 01:59 05/25/25 01:59 Lab Results 05/25/25 05/25/25 05/25/25 Range/Units 00:15 01:59 01:59 WBC 11.28 H (4.50-10.00) 10*3/uL RBC 4.23 (4.10-5.20) 10*6/uL Hgb 12.9 (12.0-15.0) g/dL Hct 36.1 L (37.2-46.3) % MCV 85.3 (80.0-97.0) fL MCH 30.5 (27.0-32.0) pg MCHC 35.7 (32.0-37.0) g/dL Plt Count 325 (140-440) 10*3/uL MPV 9.4 L (9.5-12.2) fL Immature Gran % (Auto) 0.4 % Neutrophils % 66.9 % Lymphocytes % 25.7 % Monocytes % 4.5 % Eosinophils % 2.1 % Basophils % 0.4 % Immature Gran # 0.04 (0.00-0.04) 10*3/uL Neutrophils # 7.54 (1.80-7.70) 10*3/uL Lymphocytes # 2.90 (0.90-5.00) 10*3/uL Monocytes # 0.51 (0.20-1.00) 10*3/uL Eosinophils # 0.24 (0.04-0.35) 10*3/uL Basophils # 0.05 (0.00-0.10) 10*3/uL PT 10.7 (10.0-12.5) sec INR 1.0 (<1.2) APTT 31.3 H (22.0-30.0) sec Sodium (137-145) mmol/L Potassium (3.5-5.1) mmol/L Chloride (98-107) mmol/L Carbon Dioxide (22-30) mmol/L Anion Gap mmol/L BUN (7-17) mg/dL Creatinine (0.52-1.04) mg/dL Est GFR (CKD-EPI)AfAm (>60 ml/min/1.73 sqM) Est GFR (CKD-EPI)NonAf (>60 ml/min/1.73 sqM) Glucose (74-99) mg/dL Calcium (8.4-10.2) mg/dL Total Bilirubin (0.2-1.3) mg/dL AST (14-36) U/L ALT (4-34) U/L Alkaline Phosphatase (38-126) U/L Total Protein (6.3-8.2) g/dL Albumin (3.5-5.0) g/dL HCG, Quant mIU/mL Urine Color Colorless Urine Appearance Clear (Clear) Urine pH 6.5 (5.0-8.0) Ur Specific [employer] 1.010 (1.001-1.035) Urine Protein Negative (Negative) Urine Glucose (UA) Negative (Negative) Urine Ketones Negative (Negative) Urine Blood Moderate H (Negative) Urine Nitrite Negative (Negative) Urine Bilirubin Negative (Negative) Urine Urobilinogen <2.0 (<2.0) mg/dL Ur Leukocyte Esterase Negative (Negative) Urine RBC 4 (0-5) /hpf Urine WBC 3 (0-5) /hpf Ur Squamous Epith Cells 1 (0-4) /hpf Amorphous Sediment Rare H (None) /hpf Urine Bacteria Many H (None) /hpf Urine Mucus Rare H (None) /hpf Blood Type Blood Type Recheck Bld Type Recheck Status Antibody Screen Spec Expiration Date 05/25/25 05/25/25 Range/Units 01:59 01:59 WBC (4.50-10.00) 10*3/uL RBC (4.10-5.20) 10*6/uL Hgb (12.0-15.0) g/dL Hct (37.2-46.3) % MCV (80.0-97.0) fL MCH (27.0-32.0) pg MCHC (32.0-37.0) g/dL Plt Count (140-440) 10*3/uL MPV (9.5-12.2) fL Immature Gran % (Auto) % Neutrophils % % Lymphocytes % % Monocytes % % Eosinophils % % Basophils % % Immature Gran # (0.00-0.04) 10*3/uL Neutrophils # (1.80-7.70) 10*3/uL Lymphocytes # (0.90-5.00) 10*3/uL Monocytes # (0.20-1.00) 10*3/uL Eosinophils # (0.04-0.35) 10*3/uL Basophils # (0.00-0.10) 10*3/uL PT (10.0-12.5) sec INR (<1.2) APTT (22.0-30.0) sec Sodium 135 L (137-145) mmol/L Potassium 4.2 (3.5-5.1) mmol/L Chloride 105 (98-107) mmol/L Carbon Dioxide 19 L (22-30) mmol/L Anion Gap 11 mmol/L BUN 8 (7-17) mg/dL Creatinine 0.45 L (0.52-1.04) mg/dL Est GFR (CKD-EPI)AfAm >90 (>60 ml/min/1.73 sqM) Est GFR (CKD-EPI)NonAf >90 (>60 ml/min/1.73 sqM) Glucose 83 (74-99) mg/dL Calcium 9.4 (8.4-10.2) mg/dL Total Bilirubin 0.7 (0.2-1.3) mg/dL AST 22 (14-36) U/L ALT 12 (4-34) U/L Alkaline Phosphatase 96 (38-126) U/L Total Protein 6.8 (6.3-8.2) g/dL Albumin 4.0 (3.5-5.0) g/dL HCG, Quant 97664.2 mIU/mL Urine Color Urine Appearance (Clear) Urine pH (5.0-8.0) Ur Specific [employer] (1.001-1.035) Urine Protein (Negative) Urine Glucose (UA) (Negative) Urine Ketones (Negative) Urine Blood (Negative) Urine Nitrite (Negative) Urine Bilirubin (Negative) Urine Urobilinogen (<2.0) mg/dL Ur Leukocyte Esterase (Negative) Urine RBC (0-5) /hpf Urine WBC (0-5) /hpf Ur Squamous Epith Cells (0-4) /hpf Amorphous Sediment (None) /hpf Urine Bacteria (None) /hpf Urine Mucus (None) /hpf Blood Type O Positive Blood Type Recheck O Pos Bld Type Recheck Status No Antibody Screen NEGATIVE Spec Expiration Date 05/28/20252358 Disposition Clinical Impression: Asymptomatic bacteriuria during , Vaginal bleeding in patient at less than 20 weeks gestation Disposition: HOME SELF-CARE Condition: Good Instructions (If sedation given, give patient instructions): Non-Threatening First Trimester Vaginal Bleed (ED) Additional Instructions: Every disease is a spectrum and a small chance still exists that a serious condition could develop, for this reason, please monitor yourself closely for new, changing or worsening symptoms, symptoms that persist beyond 48 hours, new or uncontrolled abdominal pain, bleeding that persist beyond another 48 hours, increasing vaginal bleeding, foul-smelling vaginal discharge, bleeding through 1 pad an hour for greater than 2 hours, fever, inability to tolerate/keep down fluids or your medications, inability to follow up with outpatient providers as instructed and should you experience these symptoms or should you have any further concerns for your wellbeing please return to the ED or call 911 immediately. Please remain on bedrest meaning nothing inserted in the vagina, no vaginal intercourse until you follow-up with your retail attendant. Please have urine rechecked by your retail attendant to ensure clearance of bacteria. PLEASE call your primary care physician as soon as possible to arrange / discuss plan for followup appointment. Appointment in the next 1-3 days is strongly encouraged if possible. PLEASE let us know here before you leave if there is anything further we can do to be of any assistance. Take care and feel Better! Prescriptions: Cephalexin [Keflex] 500 mg PO Q6HR 7 Days #28 cap Is patient prescribed a controlled substance at d/c from ED?: No Referrals: Willian Hathaway MD [Primary Care Provider] - 1-2 days Dane Stapleton MD [STAFF PHYSICIAN] - 1-2 days
[2025-05-25] MEDS: SODIUM CHLORIDE 0.9% 1,000 ML IV ONE (01:57)
[2025-05-25 02:30] LABS: Basophils # (A) 0.05 10*3/uL (0.00-0.10); Basophils % (A) 0.4 %; Eosinophils # (A) 0.24 10*3/uL (0.04-0.35); Eosinophils % (A) 2.1 %; HCT 36.1 % (37.2-46.3); HGB 12.9 g/dL (12.0-15.0); Lymphocytes # (A) 2.90 10*3/uL (0.90-5.00); Lymphocytes % (A) 25.7 %; MCH 30.5 pg (27.0-32.0); MCHC 35.7 g/dL (32.0-37.0); MCV 85.3 fL (80.0-97.0); Monocytes # (A) 0.51 10*3/uL (0.20-1.00); Monocytes % (A) 4.5 %; Neutrophils # (A) 7.54 10*3/uL (1.80-7.70); Neutrophils % (A) 66.9 %; Platelet Count 325 10*3/uL (140-440); RBC 4.23 10*6/uL (4.10-5.20); RDW 12.6 % (11.5-14.5); WBC 11.28 10*3/uL (4.50-10.00)
[2025-05-25 02:46] LABS: ALT 12 U/L (4-34); AST 22 U/L (14-36); African American GFR (CKD) >90 (>60 ml/min/1.73 sqM); Albumin 4.0 g/dL (3.5-5.0); Alkaline Phosphatase 96 U/L (38-126); Anion Gap 11 mmol/L; Blood Urea Nitrogen 8 mg/dL (7-17); Calcium 9.4 mg/dL (8.4-10.2); Carbon Dioxide 19 mmol/L (22-30); Chloride 105 mmol/L (98-107); Glucose 83 mg/dL (74-99); Non-African American GFR(CKD) >90 (>60 ml/min/1.73 sqM); Potassium 4.2 mmol/L (3.5-5.1); Sodium 135 mmol/L (137-145); Total Protein 6.8 g/dL (6.3-8.2)
[2025-05-25 02:53] LABS: Amorphous Sediment,Urine Rare /hpf; Bacteria,Urine Many /hpf; Bilirubin,Urine Negative (Negative); Blood,Urine Moderate (Negative); Color,Urine Colorless; Glucose,Urine (UA) Negative (Negative); Ketones,Urine Negative (Negative); Leukocyte Esterase,Urine Negative (Negative); Mucus,Urine Rare /hpf; Nitrite,Urine Negative (Negative); PH, Urine 6.5 (5.0-8.0); Protein,Urine Negative (Negative); RBC,Urine 4 /hpf (0-5); Specific Gravity,Urine 1.010 (1.001-1.035); Squamous Epithelial Cell,Urine 1 /hpf (0-4); Urobilinogen,Urine <2.0 mg/dL (<2.0); WBC,Urine 3 /hpf (0-5)
[2025-05-25 03:06] LABS: INR 1.0 (<1.2); Partial Thromboplastin Time 31.3 sec (22.0-30.0); Prothrombin Time 10.7 sec (10.0-12.5)
--- NOTE | 2025-05-25 03:16 | US ---
EXAM: US , transabdominal CLINICAL HISTORY: Vaginal bleeding TECHNIQUE: Real-time transabdominal obstetrical ultrasound of the maternal pelvis and a first trimester with image documentation. COMPARISON: Ob ultrasound 04/11/2025. FINDINGS: Gestation: Single living intrauterine gestation. Estimated gestational age 13 weeks 0 days. [place]-rump length measures 6.7 cm. heart tones of 153 beats per minute. NORA: Estimated date of delivery 11/30/2025. Placenta/amniotic fluid: Cannot be adequately evaluated due to the early gestational age. Uterus/cervix: The uterus measures 13.3 x 8.3 x 9.4 cm. No myometrial mass. Ovaries: The right ovary measures 2.1 x 3.2 x 2.0 cm. Left ovary measures 1.9 x 1.9 x 1.2 cm. No torsion of either ovary. Free fluid: No free fluid. IMPRESSION: Single living intrauterine gestation. No acute finding. There has been appropriate interval growth since the prior study.
[2025-05-25 03:32] LABS: HCG,Quantitative Serum 54606.2 mIU/mL
[2025-05-25] MEDS: CEPHALEXIN 500MG STARTER PACK 4 CAP BTL PO STA (03:57)
[2025-05-25 04:04] VITALS: BP 123/84; PULSE 87; RESP 16; TEMP 97.9
== END 2025-05-25 04:01 | disposition home or self-care (01) ==
LOC: EC 23:55
DX: O46.91 Antepartum hemorrhage, unspecified, first trimester (principal); R82.71 Bacteriuria; Z87.891 Personal history of nicotine dependence; Z3A.13 13 weeks gestation of pregnancy
CPT/HCPCS: 36415; 76801; 80053; 81001; 84702; 85025; 85610; 85730; 86850; 86900; 86901; 96360; 99284